=== PATIENT | female | born 1955 | race Caucasian/White ===

== ENCOUNTER 2019-11-08 07:13 | Inpatient (IN) ==
--- NOTE | 2019-10-23 15:33 | PAT Medication Instructions ---
Medication Instructions Date of Service October 23, 2019 Home Medications lisinopril 30 mg tablet 30 mg PO QAM acetaminophen [Tylenol Extra Strength] 1,000 mg PO Q6H PRN aspirin 81 mg PO QPM calcium carbonate [Calcium 600] 600 mg PO QAM cholecalciferol (vitamin D3) 3,000 units PO QPM coenzyme Q10 [CoQ-10] 200 mg PO QAM ibuprofen 600 mg PO Q6H PRN magnesium 250 mg PO QAM mecobalamin (vitamin B12) 5,000 mcg PO QAM omega 3,6,9 combination no.7 1 mg PO QAM red yeast rice 1,200 mg PO QPM sour jones extract [Tart Jones Extract] 3,000 mg PO QAM turmeric root extract 500 mg PO QAM ASK your surgeon for instructions ibuprofen 600 mg PO Q6H PRN ASK your prescriber and surgeon aspirin 81 mg PO QPM STOP taking 2 weeks before surgery (or as soon as possible if surgery is within 2 weeks) coenzyme Q10 [CoQ-10] 200 mg PO QAM omega 3,6,9 combination no.7 1 mg PO QAM red yeast rice 1,200 mg PO QPM sour jones extract [Tart Jones Extract] 3,000 mg PO QAM turmeric root extract 500 mg PO QAM DO NOT take the morning of surgery lisinopril 30 mg tablet 30 mg PO QAM calcium carbonate [Calcium 600] 600 mg PO QAM magnesium 250 mg PO QAM mecobalamin (vitamin B12) 5,000 mcg PO QAM Take morning of surgery With a small sip of water, OTHERWISE NOTHING TO EAT OR DRINK AFTER MIDNIGHT: acetaminophen [Tylenol Extra Strength] 1,000 mg PO Q6H PRN (okay to take up to 4 hours prior to surgery if needed) Take evening before surgery acetaminophen [Tylenol Extra Strength] 1,000 mg PO Q6H PRN (if needed) cholecalciferol (vitamin D3) 3,000 units PO QPM Other Notes If you have any questions please call us at [phone] or [phone] or [phone] or [phone]
--- NOTE | 2019-10-24 10:23 | Anesthesiology Consultation ---
Date of Service October 24, 2019 Assessment & Plan (1) Encounter for pre-operative examination: Patient evaluated by cardiology 03/13/19 for dyspnea and thoracic aortic aneurysm. Stress echo completed 03/27/19, and showed possible small area of apical ischemia. Reviewed by charging car operator, and no further recommendations were given to the patient. Patient subsequently moved, and charging car operator no longer with that practice. Patient seen by PCP for clearance on 10/30. She had no cardiopulmonary complaints at that visit, and expressed good functional status at PAT interview (no CP or SOB with 1 FOS). PCP reviewed EKG and stress test at clearance; patient considered "average risk" for surgery. PCP Clearance 10/30/19 = "Patient has 12 lead EKG that shows nonspecific ST T wave changes when compared to previous EKG is unchanged. She had a stress echo that was completed February 2019 which showed small area of apical ischemia but other than that no changes in ejection fraction was 76 percent. Patient would be considered average risk for this surgery. Blood pressure appears to be well controlled. I would recommend that she take her lisinopril the morning of her surgery." * *Pt phoned and instructed NOT to take Lisinopril AM DOS. Chart Review Chart Review: Acceptable Risk for Surgery and Patient seen in Pre Admission Testing Teaching & Discussion Instructed NPO after midnight before surgery, except medications with 15 cc of water. Medication instructions provided according to the PAT guidelines. History Surgery Operation Date: 11/08/19 10:25 Proposed Procedures p L3-L4 Decompression, Possible L3-L4 Fusion with Spinal Cord Monitoring - Duy Rahman DO Operation Date: 11/08/19 11:45 Proposed Procedures p L3-L4 Decompression, L3-L4 Possible Fusion, Spinal Cord Monitoring - Duy Rahman DO Height/Weight Height: 5 ft 10 in Weight: 111.2 kg Allergies Allergy/AdvReac Type Severity Reaction Status Date / Time codeine Allergy Chest Pain Verified 10/17/19 12:28 Medications Home Medications Medication Instructions Recorded Confirmed Last Taken lisinopril 30 mg tablet 30 mg PO QAM 09/05/19 10/17/19 Unknown acetaminophen [Tylenol Extra 1,000 mg PO Q6H PRN 10/17/19 10/17/19 Unknown Strength] aspirin 81 mg PO QPM 10/17/19 10/17/19 Unknown calcium carbonate [Calcium 600] 600 mg PO QAM 10/17/19 10/17/19 Unknown cholecalciferol (vitamin D3) 3,000 units PO QPM 10/17/19 10/17/19 Unknown coenzyme Q10 [CoQ-10] 200 mg PO QAM 10/17/19 10/17/19 Unknown ibuprofen 600 mg PO Q6H PRN 10/17/19 10/17/19 Unknown magnesium 250 mg PO QAM 10/17/19 10/17/19 Unknown mecobalamin (vitamin B12) 5,000 mcg PO QAM 10/17/19 10/17/19 Unknown omega 3,6,9 combination no.7 1 mg PO QAM 10/17/19 10/17/19 Unknown red yeast rice 1,200 mg PO QPM 10/17/19 10/17/19 Unknown sour jeong extract [Tart Jeong 3,000 mg PO QAM 10/17/19 10/17/19 Unknown Extract] turmeric root extract 500 mg PO QAM 10/17/19 10/17/19 Unknown nitrofurantoin 100 mg PO BID #14 cap 10/30/19 Unknown monohydrate/macrocrystals 100 mg capsule Past Medical History Medical History Arthritis Back problem RLE radiculopathy Hyperlipidemia Hypertension Lung nodule under surveillance- stable Obesity Thoracic aortic aneurysm 4.2cm at aortic arch, 3.8 ascending. Exercise / Class Metabolic Activity II 4-5 Yardwork/Stairs/Walk up hill (Denies CP or SOB with 1 FOS) Past Family History Family History Father Heart disease Myocardial infarction Hypertension Brother Pancreatic cancer Cancer Daughter Family history of diabetes mellitus Past Surgical History Surgical History H/O section History of colonoscopy Hx of appendectomy Hx of cholecystectomy Past Anesthesia History No Hx of Anesthesia Complications and No Family Hx of Anesthesia Complications History of PONV No Hx of PONV and No Hx of Motion Sickness Social History Smoking Status: Former smoker tobacco type: cigarettes Do You Dip or Chew Tobacco: No Smoking End Date: QUIT 16 YRS AGO Hx Alcohol Use: Yes Alcohol type: wine alcohol intake frequency: a few times a week Hx Substance Use: No Review of Systems Pt denies any recent chest pain, shortness of breath, palpitations, cough, fever or URI. Physical Exam Vital Signs BP: 139/79 P: 69bpm SPO2: 97% RA T: 98.4 F R: 16 ENMT Mouth: + dental restorations (one crown bottom right); no chipped teeth and no loose teeth Thyromental Distance: > or= 3.5 Finger Breadths (3.5) Mallampati Class: II Neck normal visual inspection; neck extension not limited Respiratory normal respiratory effort Auscultation: lungs clear to auscultation bilaterally Cardiovascular Rate/Rhythm: regular rate and regular rhythm Heart Sounds: + murmur (II/ systolic RSB) Vessels: no carotid bruit Extremities: no edema Testing Laboratory Results 10/24/19 10:32 10/24/19 10:32 PT 10.6 Seconds (9.0-12.0) 10/24/19 10:32 INR 1.0 (0.9-1.1) 10/24/19 10:32 APTT 28.4 Seconds (21.0-31.0) 10/24/19 10:32 Urine Color Yellow 10/24/19 Unknown Urine Appearance Clear (Clear) 10/24/19 Unknown Urine pH 6.5 (4.5-7.5) 10/24/19 Unknown Ur Specific [place] 1.012 (1.000-1.030) 10/24/19 Unknown Urine Protein Negative (Negative) 10/24/19 Unknown Urine Glucose (UA) Negative (Negative) 10/24/19 Unknown Urine Ketones Negative (Negative) 10/24/19 Unknown Urine Nitrite Negative (Negative) 10/24/19 Unknown Ur Leukocyte Esterase 2+ (Negative) H 10/24/19 Unknown Urine WBC (Auto) 1-5 /hpf (0-5) 10/24/19 Unknown Urine RBC (Auto) 0-4 /hpf (0-4) 10/24/19 Unknown U Hyaline Cast (Auto) 0 /lpf (0-5) 10/24/19 Unknown U Epithel Cells (Auto) 10-20 /lpf (0-5) H 10/24/19 Unknown Urine Bacteria (Auto) Negative (Negative) 10/24/19 Unknown Blood Type A Positive 10/24/19 10:32 Antibody Screen NEGATIVE 10/24/19 10:32 11/27/19 Unknown Urine Culture - Final Urine,Clean Catch More than three types of organisms present, all high counts. Repeat collection recommended. No further identifications or sensitivities to follow. Electrocardiogram Date: 10/24/19 Findings: + NSR @ (62bpm) iRBBB. Nonspecific ST and TWA. Chest X-Ray Date: 10/24/19 Findings: + NAD Echocardiogram "Echo showed aortic arch to be 4.2 cm ascending aorta 3.8 cm. There was trace to mild mitral regurgitation likely from the thoracic aortic dilatation trace tricuspid regurgitation and normal left ventricular ejection fraction is 60 65%. " Echo referenced in PCP note 10/30, no date provided, no TTEs on record at [facility]. Stress Test Date: 03/27/19 Type: nuclear Resting EF: 73% Possible small area of apical ischemia. No infarct. Normal LV systolic function.
--- NOTE | 2019-10-24 11:10 | XRay Report ---
TWO VIEW CHEST CLINICAL HISTORY: Preoperative examination. FINDINGS: PA and lateral chest radiographs are obtained. No prior studies are available for compariso n at the time of dictation. The cardiomediastinal silhouette is unremarkable. The lungs and pleura l spaces are clear. There is no pneumothorax. The bony thorax appears intact. Surgical clips are note d in the upper abdomen. IMPRESSION: No active disease in the chest. Electronically signed by: Miguel Acevedo M.D. 10/24/2019 11:09 AM
[2019-10-24 11:20] LABS: Basophils # (auto) 0.02 K/uL (0-0.2); Basophils % (auto) 0.4 %; Eosinophils # (auto) 0.12 K/uL (0-0.5); Eosinophils % (auto) 2.1 %; Hemoglobin 12.4 g/dL (12.0-16.0); Immature Granulocytes # (auto) 0.01 K/uL (0.00-0.02); Immature Granulocytes % (auto) 0.2 %; Lymphocytes # (auto) 1.78 K/uL (1.2-3.4); Lymphocytes % (auto) 31.6 %; Mean Corpuscular Hemoglobin 32.8 pg (25-34); Mean Corpuscular Hgb Conc 33.5 g/dL (32-36); Mean Corpuscular Volume 97.9 fL (80-100); Mean Platelet Volume 10.2 fL (7.4-10.4); Monocytes # (auto) 0.39 K/uL (0.11-0.59); Monocytes % (auto) 6.9 %; Neutrophils # (auto) 3.31 K/uL (1.4-6.5); Neutrophils % (auto) 58.8 %; Platelet Count 291 K/uL (130-400); RDW Coefficient of Variation 12.8 % (11.5-14.5); RDW Standard Deviation 45.6 fL (36.4-46.3); Red Blood Count 3.78 M/uL (4.2-5.4); White Blood Count 5.63 K/uL (4.8-10.8)
[2019-10-24 11:28] LABS: BUN Creatinine Ratio 19.5 (10-20); Calcium 9.5 mg/dl (8.5-10.1); Creatinine Clr Calc Pharmacy 98.6 ml/min; Est GFR (African American) 94.6; Est GFR (Non-African American) 81.6; Potassium 3.9 mmol/L (3.5-5.1)
[2019-10-24 11:43] LABS: Partial Thromboplastin Time 28.4 Seconds (21.0-31.0); Prothrombin Time 10.6 Seconds (9.0-12.0)
[2019-10-24 12:24] LABS: Appearance Urine Clear (Clear); Bacteria Urine Automated Negative (Negative); Bilirubin Urine Negative (Negative); Blood Urine Negative (Negative); Cast Urine Automated 0 /lpf (0-5); Color Urine Yellow; Glucose Urine UA Negative (Negative); Ketones Urine Negative (Negative); Leukocyte Esterase Urine 2+ (Negative); Nitrite Urine Negative (Negative); Protein Urine Negative (Negative); RBC Urine Automated 0-4 /hpf (0-4); Specific Gravity Urine 1.012 (1.000-1.030); Urobilinogen Urine Negative (Negative); pH Urine 6.5 (4.5-7.5)
[~2019-11-08 07:13] MED LIST: ACETAMINOPHEN 500 MG TAB PO SCH; CEFAZOLIN 2000MG 2,000 MG/15 ML SYR IV SCH; CeleBREX 200 MG CAP PO SCH; GABAPENTIN 600 MG DOSE PO SCH; HYDROmorphone INJ 2 MG/ML SYR/VIAL ONE; LR 15ML/HR IV SCH; MIDAZOLAM HCL 1 MG/ML 2ML VIAL ONE; fentaNYL citrate 100 MCG/2 ML VIAL ONE
--- NOTE | 2019-11-08 09:01 | History & Physical Bridge Note ---
Date of Service November 08, 2019 History & Physical Bridge Note I have examined the patient, reviewed the History & Physical and in the interval since the performance of the History & Physical I have noted the following changes of clinical significance: no changes noted
--- NOTE | 2019-11-08 09:02 | History & Physical Report ---
Date of Service November 08, 2019 Assessment & Plan (1) Spinal stenosis of lumbar region with radiculopathy: Decompression L3-4, possible fusion L3-4 Present on Admission?: Yes History of Present Illness Chief Complaint: Back and leg pain Primary Care Provider: James Rodriguez MD This is a 64-year-old female who presents with chronic persistent back and leg pain. After failing extensive course of nonoperative care is here for surgical invention. Allergies Allergy/AdvReac Type Severity Reaction Status Date / Time codeine Allergy Chest Pain Verified 11/08/19 08:06 Home Medications Home Medications Medication Instructions Recorded Confirmed Type lisinopril 30 mg tablet 30 mg PO QAM 09/05/19 11/08/19 History acetaminophen [Tylenol Extra 1,000 mg PO Q6H PRN 10/17/19 11/08/19 History Strength] aspirin 81 mg PO QPM 10/17/19 11/08/19 History calcium carbonate [Calcium 600] 600 mg PO QAM 10/17/19 11/08/19 History cholecalciferol (vitamin D3) 3,000 units PO QPM 10/17/19 11/08/19 History coenzyme Q10 [CoQ-10] 200 mg PO QAM 10/17/19 11/08/19 History ibuprofen 600 mg PO Q6H PRN 10/17/19 11/08/19 History magnesium 250 mg PO QAM 10/17/19 11/08/19 History mecobalamin (vitamin B12) 5,000 mcg PO QAM 10/17/19 11/08/19 History omega 3,6,9 combination no.7 1 mg PO QAM 10/17/19 11/08/19 History red yeast rice 1,200 mg PO QPM 10/17/19 11/08/19 History sour jones extract [Tart Jones 3,000 mg PO QAM 10/17/19 11/08/19 History Extract] turmeric root extract 500 mg PO QAM 10/17/19 11/08/19 History Past Med/Surg History Medical History Arthritis Back problem RLE radiculopathy Hyperlipidemia Hypertension Lung nodule under surveillance- stable Obesity Thoracic aortic aneurysm 4.2cm at aortic arch, 3.8 ascending. 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 Other Information That Helps Us Care for You: No Feels Safe at Home: Yes Safety Concerns: Feels Safe At This Time Smoking Status: Former smoker Tobacco Type: cigarettes ; Age Started Using Tobacco: 20 ; Age Quit Using Tobacco: 48 ; packs per day: 1 ; Do You Dip or Chew Tobacco: No ; Smoking End Date: QUIT 16 YRS AGO ; Second Hand Exposure: Yes (FATHER SMOKED) ; Hx Alcohol Use: Yes Alcohol type: wine Alcohol Intake Frequency: Weekly Alcohol Intake Frequency Comment: 5 drinks per week Hx Substance Use: No Childhood Exposure to Second-Hand Smoke: Yes caffeine: Yes during the past year weight has: remained stable Dental Care, Regularly: Yes Physical Activity Frequency: Other Seatbelt Use: always Sunscreen Use: Yes Physical Exam Physical Exam: Patient is alert and oriented neurologically intact. Results & Data Vital Signs (Past 12 Hours) Vital Signs Temp Pulse Resp BP Pulse Ox 11/08/19 08:13 37.2 C 69 16 155/91 H 98
[2019-11-08] MEDS ORDERED: BUPIVACAINE/EPINEPHRINE 0.5% MPF 1:200,000 10 ML VIAL ONE (09:12)
[2019-11-08] MEDS ORDERED: BACITRACIN INJ 50,000 UNIT VIAL ONE (09:12)
[2019-11-08] MEDS ORDERED: ePHEDrine sulfate 50 MG/ML AMP IV PRN (09:36)
[2019-11-08] MEDS ORDERED: ATROPINE SULFATE 0.1 MG/ML 10ML SYR IV PRN (09:36)
[2019-11-08] MEDS ORDERED: ONDANSETRON INJ 2 MG/ML 2 ML VIAL IV PRN ×2 (09:36→12:44)
[2019-11-08] MEDS ORDERED: METOCLOPRAMIDE HCL INJ 5 MG/ML 2 ML VIAL IV PRN ×2 (09:36→12:44)
[2019-11-08] MEDS ORDERED: HYDROmorphone INJ 2 MG/ML SYR/VIAL IV PRN (09:36)
[2019-11-08] MEDS ORDERED: PROMETHAZINE HCL 12.5 MG in SODIUM CHLORIDE 0.9% 50 ML IV PRN ×2 (09:36→12:44)
[2019-11-08] MEDS ORDERED: fentaNYL citrate 100 MCG/2 ML VIAL ONE ×4 (09:58→11:06)
[2019-11-08] MEDS ORDERED: LARYING-O-JET KIT (LTA) ONE (10:05)
[2019-11-08] MEDS ORDERED: ONDANSETRON INJ 2 MG/ML 2 ML VIAL ONE (10:05)
[2019-11-08] MEDS ORDERED: DEXAMETHASONE SOD INJ 4 MG/ML VIAL ONE (10:05)
[2019-11-08] MEDS ORDERED: LIDOCAINE HCL 2% 2 ML VIAL/AMP(20MG/ML) INFIL ONE (10:05)
[2019-11-08] MEDS ORDERED: NEOSTIGMINE METHYLSULFATE 1 MG/ML 10ML VIAL ONE (10:05)
[2019-11-08] MEDS ORDERED: ROCURONIUM BROMIDE 10 MG/ML 5 ML VIAL ONE (10:05)
[2019-11-08] MEDS ORDERED: PROPOFOL IV EMULSION 10 MG/ML 20 ML VIAL IV ONE (10:05)
[2019-11-08] MEDS ORDERED: GLYCOPYRROLATE 0.2 MG/ML VIAL ONE (10:05)
[2019-11-08] MEDS ORDERED: FLOSEAL HEMOSTATIC MATRIX 10ML TOP ONE (10:07)
[2019-11-08] MEDS ORDERED: HYDROmorphone INJ 2 MG/ML SYR/VIAL ONE (10:32)
[2019-11-08] MEDS ORDERED: KETOROLAC 30 MG/ML VIAL ONE (11:09)
--- NOTE | 2019-11-08 11:09 | Operative Report ---
Post Operative Report Pre & Post Diagnosis Operation Date: 11/08/19 09:05 Pre-Op Diagnosis: Lumbar spinal stenosis with neurogenic claudication Herniated was pulposis L3-4 Post-Op Diagnosis: Same Operation Date: 11/08/19 10:25 <No data on this case meets the specified criteria> I identified the patient and participated in the time-out.: Yes Procedure Operation Date: 11/08/19 09:05 Actual Procedures #1 lumbar decompression with bilateral medial facetectomies foraminotomies L2-3 L3-4. #2 posterior spinal fusion L3-4. #3 placed posterior instrumentation L3- 4. #4 interbody fusion L3-4 per #5 placement of peek cage 12 x 26 mm at L3-4. #6 placement of locally harvested morselized autograft in the posterior lateral gutters. #7 placement infuse collagen sponge bone mass graft in the posterior lateral gutters and ostial amp and interbody space. Surgeon Duy Rahman, DO Project Product Manager Amanda Burgos Estimated Blood Loss 75 Findings See Below The patient is 5 foot 10 inches tall weighing over 109 kg with a BMI in excess of 34. The patient's body habitus did add significant technical difficulty throughout the procedure adding at least 40% increase in operative time. Specimens None Indications This is a 64-year-old female who presents above-mentioned diagnosis after fa iling extensive course of nonoperative care is here for surgical intervention. Description of Procedure Patient was met with identified informed consent obtained. Patient was then taken to the operative suite underwent intubation placed in a prone position on the Alverto table on top of the Jose frame. All bony prominences well-padded eyes inspected to ensure no external pressure was prompt at this point the lumbar spine was prepped and draped in a sterile fashion. Sharp dissection with the assistance of Bovie cautery was then performed down to and exposing the lamina and trans-processes of L3 and L4 bilaterally. From caudal cephalad fashion complete laminectomy of L3 partial laminectomy of L2 was performed including bilateral medial facetectomies and foraminotomies addressing all stenosis. Disc herniation L3-4 on the right was also identified and removed. Pedicle screws were then placed in L3 and L4 bilaterally with assistance of fluoroscopy the process deanna placed. By way of a transforaminal portion right complete discectomy was performed endplates curetted to subcortical bleeding bone and a 12 x 26 mm peek cage filled with osteo-bone graft tapped in position. Rods were then locked in final position bilaterally. Transverse processes of L3 and L4 were burred to subcortical bleeding bone. Infuse collagen sponge master graft local autograft placed in the posterior lateral gutters. 15 round ABI drain inserted. The incision was then closed with 1 Vicryl in the fascia 2-0 Vicryl subcutaneously and 4 Monocryl for final skin closure. Steri-Strip sterile dressings placed. Patient will continue to PACU stable condition. Please note Amanda Burgos present present throughout the entire procedure involved the patient positioning complex portions of the surgery and final skin closure. Lastly spinal cord monitoring was utilized that the procedure no changes noted. I attest to the content of the Intraoperative Record and any orders documented therein. Any exceptions are noted below.
[2019-11-08] MEDS ORDERED: ESMOLOL HCL INJ 10 MG/ML 10ML VIAL IV ONE (11:22)
[2019-11-08] MEDS: fentaNYL citrate 100 MCG/2 ML VIAL IV PRN ×2 (11:35→11:40)
--- NOTE | 2019-11-08 11:44 | Fluoroscopy Report ---
FL lumbar spine 2-3V CLINICAL HISTORY: L3-4 DECOMPRESSION/FUSION/INTERBODY COMPARISON STUDY: None FLUOROSCOPY TIME: 15 seconds. NUMBER OF FLUOROSCOPIC IMAGES: 2 FINDINGS: There are postsurgical changes of a lumbar decompression with discectomy and interbody fusi on. There is posterior pedicle screw fixation. The exact level cannot be determined with certainty du e to the small field of view. IMPRESSION: Postsurgical changes of a lumbar discectomy and interbody fusion and posterior pedicle s crew fixation Electronically signed by: Param Juarez M.D. 11/08/2019 11:42 AM
[2019-11-08] MEDS ORDERED: MAGNESIUM HYDROXIDE SUSP 30 ML UDC PO PRN (12:44)
[2019-11-08] MEDS ORDERED: DO NOT ADMINISTER FLU VACCINE PRN (12:44)
[2019-11-08] MEDS ORDERED: HYDROmorphone INJ 0.5 MG/0.5 ML SYR IV PRN (12:44)
[2019-11-08] MEDS ORDERED: ACETAMINOPHEN 1,000 MG/100 ML VIAL IV PRN (12:44)
[2019-11-08] MEDS ORDERED: NALOXONE HCL 0.4 MG/1 ML VIAL/CARP IV PRN (12:44)
[2019-11-08] MEDS ORDERED: SOD PHOSPHATE/SOD BIPHOSPHATE ENEMA 132 ML BTL PR PRN (12:44)
[2019-11-08] MEDS ORDERED: bisacodyL 10 MG SUPP PR PRN (12:44)
[2019-11-08] MEDS ORDERED: DO NOT ADMINISTER PNEUMOCOCCAL VACCINE PRN (12:44)
[2019-11-08] MEDS ORDERED: LORazepam 0.5 MG/1 ML VIAL IV PRN (12:44)
[2019-11-08] MEDS ORDERED: FAMOTIDINE 20 MG TAB PO PRN (12:44)
[2019-11-08] MEDS ORDERED: ALUMINUM/MAGNESIUM SUSP 30 ML UDC PO PRN (12:44)
[2019-11-08] MEDS: OXYCODONE HCL IR 5 MG TAB (IMMEDIATE RELEASE) PO PRN ×3 (13:42→22:13)
[2019-11-08] MEDS: SODIUM CHLORIDE 0.9% 1000ML 1,000 ML IV SCH ×2 (13:45→20:19)
[2019-11-08] MEDS: KETOROLAC TROMETHAMINE 15 MG/ML VIAL IV SCH ×2 (13:45→20:14)
--- NOTE | 2019-11-08 14:27 | Anesthesiology Progress Note ---
Date of Service November 08, 2019 Anesthesia Post Procedure Vital Signs Vital Signs: Temp Pulse Pulse Resp BP Pulse Ox 11/08/19 13:38 64 14 118/79 98 11/08/19 12:35 36.7 C 61 14 116/77 97 11/08/19 12:00 36.6 C 61 14 129/70 95 11/08/19 11:50 66 17 120/66 98 11/08/19 11:40 48 L 12 122/67 98 11/08/19 11:30 61 12 129/76 100 11/08/19 11:21 36.9 C 66 12 124/72 100 11/08/19 08:13 37.2 C 69 16 155/91 H 98 Pain Intensity Posterior Back: Pain Intensity: 5 Transfer of Care Handoff Completed per policy Notes Mental Status: alert / awake / arousable and participated in evaluation Patient Amnestic to Procedure: Yes Nausea / Vomiting: adequately controlled Pain: adequately controlled Airway Patency, RR, SpO2: stable & adequate BP & HR: stable & adequate Hydration State: stable & adequate Anesthetic Complications: no major complications apparent
[2019-11-08] MEDS: CEFAZOLIN 2000MG 2,000 MG/15 ML SYR IV SCH (17:51)
[2019-11-08] MEDS: DOCUSATE SODIUM/SENNA 50/8.6MG TAB PO SCH (20:13)
[2019-11-08] MEDS: ASPIRIN 81 MG ECTAB PO SCH (20:13)
[2019-11-08] MEDS: CHOLECALCIFEROL 1,000 UNITS TAB PO SCH (20:14)
[2019-11-08] MEDS ORDERED: RED YEAST RICE 1200 MG PO SCH (21:00)
[2019-11-09] MEDS: KETOROLAC TROMETHAMINE 15 MG/ML VIAL IV SCH ×2 (01:40→07:57)
[2019-11-09] MEDS: CEFAZOLIN 2000MG 2,000 MG/15 ML SYR IV SCH (01:40)
[2019-11-09] MEDS: SODIUM CHLORIDE 0.9% 1000ML 1,000 ML IV SCH (02:59)
[2019-11-09 05:35] LABS: Hemoglobin 9.9 g/dL (12.0-16.0); Immature Granulocytes # (auto) 0.01 K/uL (0.00-0.02); Immature Granulocytes % (auto) 0.1 %; Lymphocytes % (auto) 10.3 %; Mean Corpuscular Hemoglobin 32.2 pg (25-34); Mean Corpuscular Volume 97.7 fL (80-100); Mean Platelet Volume 9.8 fL (7.4-10.4); Monocytes # (auto) 0.61 K/uL (0.11-0.59); Neutrophils # (auto) 7.24 K/uL (1.4-6.5); Neutrophils % (auto) 82.6 %; Platelet Count 261 K/uL (130-400); RDW Coefficient of Variation 12.8 % (11.5-14.5); RDW Standard Deviation 45.4 fL (36.4-46.3); Red Blood Count 3.07 M/uL (4.2-5.4); White Blood Count 8.76 K/uL (4.8-10.8)
[2019-11-09] MEDS: OXYCODONE HCL IR 5 MG TAB (IMMEDIATE RELEASE) PO PRN ×4 (05:38→19:24)
[2019-11-09] MEDS: POLYETHYLENE (MIRALAX) 17 GM PACK PO SCH ×4 (05:39→23:31)
[2019-11-09 06:07] LABS: BUN Creatinine Ratio 19.2 (10-20); Calcium 8.3 mg/dl (8.5-10.1); Creatinine Clr Calc Pharmacy 88.8 ml/min; Est GFR (African American) 82.7; Est GFR (Non-African American) 71.4; Potassium 4.4 mmol/L (3.5-5.1)
--- NOTE | 2019-11-09 07:54 | Anesthesiology Progress Note ---
Date of Service November 09, 2019 Anesthesia Post Procedure Vital Signs Vital Signs: Temp Pulse Pulse Resp BP Pulse Ox 11/09/19 07:33 36.6 C 58 L 16 130/87 97 11/09/19 03:05 36.7 C 64 16 116/71 96 11/08/19 23:59 36.6 C 72 16 113/69 96 11/08/19 19:54 36.6 C 67 16 129/77 94 11/08/19 15:19 36.6 C 72 16 120/74 96 11/08/19 14:00 70 16 136/79 97 11/08/19 13:38 65 16 125/74 97 11/08/19 13:05 64 16 118/77 98 11/08/19 12:35 36.7 C 61 14 116/77 97 11/08/19 12:00 36.6 C 61 14 129/70 95 11/08/19 11:50 66 17 120/66 98 11/08/19 11:40 48 L 12 122/67 98 11/08/19 11:30 61 12 129/76 100 11/08/19 11:21 36.9 C 66 12 124/72 100 11/08/19 08:13 37.2 C 69 16 155/91 H 98 Pain Intensity Posterior Back: Pain Intensity: 5 Notes Mental Status: alert / awake / arousable and participated in evaluation Patient Amnestic to Procedure: Yes Nausea / Vomiting: adequately controlled Pain: adequately controlled Airway Patency, RR, SpO2: stable & adequate BP & HR: stable & adequate Hydration State: stable & adequate Anesthetic Complications: no major complications apparent and Pt Satisfied with anesthetic care
[2019-11-09] MEDS: CYANOCOBALAMIN (VITAMIN B-12) 2,500 MCG TAB.SUBL SL SCH (08:03)
[2019-11-09] MEDS: CALCIUM CARBONATE 1250MG TAB PO SCH (08:04)
[2019-11-09] MEDS: lisinopriL 10 MG TAB PO SCH (08:04)
[2019-11-09] MEDS: MAGNESIUM OXIDE 400 MG TAB PO SCH (08:04)
[2019-11-09] MEDS ORDERED: NON-FORMULARY MEDICATION (Coenzyme Q10 [Coq-10] 200 MG) PO SCH (09:00)
[2019-11-09] MEDS ORDERED: NON-FORMULARY MEDICATION (Turmeric Root Extract 500 MG) PO SCH (09:00)
[2019-11-09] MEDS ORDERED: TART CHERRY EXTRACT PO SCH (09:00)
--- NOTE | 2019-11-09 10:11 | Orthopedic Progress Note ---
Date of Service November 09, 2019 Assessment & Plan (1) Spinal stenosis of lumbar region with radiculopathy: This time we will continue physical therapy monitor ABI output anticipate discharge home this weekend. Present on Admission?: Yes Subjective Patient's back pain is controlled leg pain markedly improved. Physical Exam Physical Exam: Patient is in the chair at the bedside is good strength testing appears comfortable. Results & Data Vital Signs (Past 12 Hours) Vital Signs Temp Pulse Resp BP Pulse Ox 11/09/19 07:33 36.6 C 58 L 16 130/87 97 11/09/19 03:05 36.7 C 64 16 116/71 96 11/08/19 23:59 36.6 C 72 16 113/69 96
[2019-11-09] MEDS: MICONAZOLE NITRATE POWDER 43 GM EXT SCH ×2 (11:57→20:44)
[2019-11-09] MEDS: ASPIRIN 81 MG ECTAB PO SCH (20:43)
[2019-11-09] MEDS: DOCUSATE SODIUM/SENNA 50/8.6MG TAB PO SCH (20:43)
[2019-11-09] MEDS: CHOLECALCIFEROL 1,000 UNITS TAB PO SCH (20:44)
[2019-11-09] MEDS: TRAMADOL HCL 50 MG TABLET PO PRN (22:42)
[2019-11-10] MEDS: OXYCODONE HCL IR 5 MG TAB (IMMEDIATE RELEASE) PO PRN ×5 (02:00→21:01)
[2019-11-10] MEDS: HYDROmorphone INJ 1 MG/ML SYRINGE IV PRN ×2 (04:13→08:00)
[2019-11-10] MEDS: POLYETHYLENE (MIRALAX) 17 GM PACK PO SCH ×4 (05:50→23:26)
[2019-11-10] MEDS: CYANOCOBALAMIN (VITAMIN B-12) 2,500 MCG TAB.SUBL SL SCH (07:00)
[2019-11-10] MEDS: lisinopriL 10 MG TAB PO SCH (07:01)
[2019-11-10] MEDS: LORazepam 0.5 MG TAB PO PRN (07:31)
[2019-11-10] MEDS: MAGNESIUM OXIDE 400 MG TAB PO SCH (08:04)
[2019-11-10] MEDS: CALCIUM CARBONATE 1250MG TAB PO SCH (08:05)
[2019-11-10] MEDS: TRAMADOL HCL 50 MG TABLET PO PRN ×2 (10:10→16:10)
[2019-11-10] MEDS: ACETAMINOPHEN 500 MG TAB PO PRN (10:10)
--- NOTE | 2019-11-10 10:37 | Orthopedic Progress Note ---
Date of Service November 10, 2019 Assessment & Plan (1) Spinal stenosis of lumbar region with radiculopathy: This time we will continue physical therapy as tolerated. Monitor ABI output. Hopefully discharge home tomorrow. Present on Admission?: Yes Subjective Patient complaining mostly of back pain today. Again leg symptoms markedly improved. Physical Exam Physical Exam: On exam she has good strength testing. Results & Data Vital Signs (Past 12 Hours) Vital Signs Temp Pulse Resp BP Pulse Ox 11/10/19 06:09 36.7 C 69 16 142/83 H 96 11/09/19 23:50 37.0 C 69 16 115/72 97
[2019-11-10] MEDS ORDERED: DEXAMETHASONE SOD PHOSPHATE 8 MG in SYRINGE 0 ML IV STA (10:44)
[2019-11-10] MEDS: MICONAZOLE NITRATE POWDER 43 GM EXT SCH ×2 (10:45→19:41)
[2019-11-10] MEDS: CHOLECALCIFEROL 1,000 UNITS TAB PO SCH (19:40)
[2019-11-10] MEDS: DOCUSATE SODIUM/SENNA 50/8.6MG TAB PO SCH (19:40)
[2019-11-10] MEDS: ASPIRIN 81 MG ECTAB PO SCH (19:40)
[2019-11-11] MEDS: OXYCODONE HCL IR 5 MG TAB (IMMEDIATE RELEASE) PO PRN ×4 (03:50→18:31)
[2019-11-11] MEDS: POLYETHYLENE (MIRALAX) 17 GM PACK PO SCH ×3 (05:48→19:13)
--- NOTE | 2019-11-11 08:26 | Orthopedic Progress Note ---
Date of Service November 11, 2019 Assessment & Plan (1) Lumbar disc disease: Patient is doing well postop day #3 with some distention and mild abdominal discomfort. We will have her continue to ambulate. We will continue with GI DVT prophylaxis. We will hold off on her discharge today and will see how she does throughout the day and likely discharge her to home tomorrow. Subjective Patient was seen bedside postoperative day #3. She had difficulties yesterday. Walking was painful in terms of her back itself. She also feels somewhat bloated and has not yet had a bowel movement. The pain is slightly better this morning. She is hesitant to go home as she has not had a bowel movement yet and still has significant pain. She denies any other numbness, tingling, or paresthesias. Physical Exam Physical Exam: On exam she is alert and oriented. Her calf is supple and nontender. She has some mild distention in the abdomen but has no significant tenderness with palpation. Her strength and sensation are both intact gait was not observed. Results & Data Vital Signs (Past 12 Hours) Vital Signs Temp Pulse Pulse Resp BP Pulse Ox 11/11/19 06:59 36.6 C 62 18 129/84 97 11/10/19 23:27 36.7 C 66 14 148/90 H 94
[2019-11-11] MEDS: lisinopriL 10 MG TAB PO SCH (09:41)
[2019-11-11] MEDS: CALCIUM CARBONATE 1250MG TAB PO SCH (09:41)
[2019-11-11] MEDS: MAGNESIUM OXIDE 400 MG TAB PO SCH (09:41)
[2019-11-11] MEDS: MICONAZOLE NITRATE POWDER 43 GM EXT SCH ×2 (09:43→20:30)
[2019-11-11] MEDS: CYANOCOBALAMIN (VITAMIN B-12) 2,500 MCG TAB.SUBL SL SCH (10:42)
[2019-11-11] MEDS: TRAMADOL HCL 50 MG TABLET PO PRN ×2 (16:11→21:15)
[2019-11-11] MEDS: ONDANSETRON 4 MG OD TAB PO PRN (17:50)
[2019-11-11] MEDS: ASPIRIN 81 MG ECTAB PO SCH (20:31)
[2019-11-11] MEDS: DOCUSATE SODIUM/SENNA 50/8.6MG TAB PO SCH (20:31)
[2019-11-11] MEDS: CHOLECALCIFEROL 1,000 UNITS TAB PO SCH (20:32)
[2019-11-11] MEDS: ACETAMINOPHEN 500 MG TAB PO PRN (22:22)
[2019-11-12] MEDS: OXYCODONE HCL IR 5 MG TAB (IMMEDIATE RELEASE) PO PRN ×3 (00:18→17:04)
[2019-11-12] MEDS: POLYETHYLENE (MIRALAX) 17 GM PACK PO SCH (00:19)
[2019-11-12] MEDS: ONDANSETRON 4 MG OD TAB PO PRN (00:45)
[2019-11-12] MEDS: ACETAMINOPHEN 500 MG TAB PO PRN (06:16)
[2019-11-12] MEDS: TRAMADOL HCL 50 MG TABLET PO PRN (07:16)
[2019-11-12] MEDS: LORazepam 0.5 MG TAB PO PRN ×2 (08:18→21:52)
[2019-11-12] MEDS: MAGNESIUM OXIDE 400 MG TAB PO SCH (08:41)
[2019-11-12] MEDS: MICONAZOLE NITRATE POWDER 43 GM EXT SCH ×2 (08:41→21:41)
[2019-11-12] MEDS: CALCIUM CARBONATE 1250MG TAB PO SCH (08:41)
[2019-11-12] MEDS: lisinopriL 10 MG TAB PO SCH (08:42)
[2019-11-12] MEDS: CYANOCOBALAMIN (VITAMIN B-12) 2,500 MCG TAB.SUBL SL SCH (08:42)
[2019-11-12] MEDS: HYDROmorphone INJ 1 MG/ML SYRINGE IV PRN (09:46)
[2019-11-12] MEDS ORDERED: ONDANSETRON INJ 2 MG/ML 2 ML VIAL ONE (12:16)
[2019-11-12] MEDS ORDERED: NEOSTIGMINE METHYLSULFATE 1 MG/ML 10ML VIAL ONE (12:16)
[2019-11-12] MEDS ORDERED: PROPOFOL IV EMULSION 10 MG/ML 20 ML VIAL IV ONE (12:16)
[2019-11-12] MEDS ORDERED: fentaNYL citrate 100 MCG/2 ML VIAL ONE (12:16)
[2019-11-12] MEDS ORDERED: DEXAMETHASONE SOD INJ 4 MG/ML VIAL ONE (12:16)
[2019-11-12] MEDS ORDERED: LIDOCAINE HCL 2% 2 ML VIAL/AMP(20MG/ML) INFIL ONE (12:16)
[2019-11-12] MEDS ORDERED: GLYCOPYRROLATE 0.2 MG/ML VIAL ONE (12:16)
[2019-11-12] MEDS ORDERED: MIDAZOLAM HCL 1 MG/ML 2ML VIAL ONE (12:17)
--- NOTE | 2019-11-12 13:01 | Orthopedic Progress Note ---
Date of Service November 12, 2019 Assessment & Plan (1) Postoperative hematoma: At this time the patient's drain was DC'd prematurely as it did fall out. Presentation is consistent with a postop hematoma no elected to undergo urgent I&D of the epidural space. Patient understands and agrees. Risk benefits pros cons alternatives outlined in detail. Present on Admission?: No Subjective Patient complaining of significant back and bilateral leg pain with activity. This is a marked change from her function yesterday. Physical Exam Physical Exam: Patient is in bed she has marked difficulty rolling over or laying flat without reproduction of pain. She is neurologically intact otherwise. Results & Data Vital Signs (Past 12 Hours) Vital Signs Temp Pulse Resp BP Pulse Ox 11/12/19 12:39 36.8 C 63 20 159/72 H 97 11/12/19 07:07 36.7 C 65 16 143/84 H 98
[2019-11-12] MEDS ORDERED: BACITRACIN INJ 50,000 UNIT VIAL ONE (13:06)
--- NOTE | 2019-11-12 13:09 | Anesthesiology Consultation ---
Date of Service November 12, 2019 Assessment & Plan Chart Review Chart Review: Acceptable Risk for Surgery Consults Requested none History Surgery Operation Date: 11/08/19 09:05 Proposed Procedures p L3-L4 Decompression, L3-L4 Possible Fusion, Spinal Cord Monitoring - Duy Rahman DO Operation Date: 11/08/19 10:25 Proposed Procedures p L3-L4 Decompression, Possible L3-L4 Fusion with Spinal Cord Monitoring - Duy Rahman DO Operation Date: 11/12/19 07:55 Proposed Procedures p Incision and Drainage Lumbar Spine - Duy Rahman DO Height/Weight Height: 5 ft 10 in Weight: 109.939 kg Allergies Allergy/AdvReac Type Severity Reaction Status Date / Time codeine Allergy Chest Pain Verified 11/08/19 08:06 Medications Home Medications Medication Instructions Recorded Confirmed Last Taken lisinopril 30 mg tablet 30 mg PO QAM 09/05/19 11/08/19 11/07/19 08:00 acetaminophen [Tylenol Extra 1,000 mg PO Q6H PRN 10/17/19 11/08/19 Unknown Strength] aspirin 81 mg PO QPM 10/17/19 11/08/19 10/25/19 08:00 calcium carbonate [Calcium 600] 600 mg PO QAM 10/17/19 11/08/19 10/25/19 08:00 cholecalciferol (vitamin D3) 3,000 units PO QPM 10/17/19 11/08/19 10/25/19 08:00 coenzyme Q10 [CoQ-10] 200 mg PO QAM 10/17/19 11/08/19 10/25/19 08:00 ibuprofen 600 mg PO Q6H PRN 10/17/19 11/08/19 10/22/19 12:00 magnesium 250 mg PO QAM 10/17/19 11/08/19 10/25/19 08:00 mecobalamin (vitamin B12) 5,000 mcg PO QAM 10/17/19 11/08/19 10/25/19 08:00 omega 3,6,9 combination no.7 1 mg PO QAM 10/17/19 11/08/19 10/25/19 08:00 red yeast rice 1,200 mg PO QPM 10/17/19 11/08/19 10/25/19 08:00 sour jeong extract [Tart Jeong 3,000 mg PO QAM 10/17/19 11/08/19 10/25/19 08:00 Extract] turmeric root extract 500 mg PO QAM 10/17/19 11/08/19 10/25/19 08:00 oxycodone 5 mg PO Q6H PRN #30 tab 11/09/19 Unknown tramadol 50 mg PO Q6H PRN #30 tab 11/09/19 Unknown Active Medications Generic Name Dose Route Start Last Admin Trade Name Freq PRN Reason Stop Dose Admin Acetaminophen 1,000 mg 11/08/19 12:44 11/12/19 06:16 Tylenol PO 12/08/19 12:43 1,000 mg Q8H PRN Administration MILD Pain Rating 1,2,3 Aspirin 81 mg 11/08/19 21:00 11/11/19 20:31 Ecotrin Ectab PO 12/08/19 20:59 81 mg QPM STACIA Administration Calcium Carbonate 1,250 mg 11/09/19 09:00 11/12/19 08:41 Os-Burak 500 PO 12/09/19 08:59 1,250 mg QAM STACIA Administration Cyanocobalamin 5,000 mcg 11/09/19 09:00 11/12/19 08:42 Vitamin B-12 SL 12/09/19 08:59 Not Given QAM STACIA Hydromorphone HCl 1 mg 11/08/19 12:44 11/12/19 09:46 Dilaudid IV 11/22/19 12:43 1 mg Q3H PRN Administration severe pain (scale 7-10) Lisinopril 30 mg 11/09/19 09:00 11/12/19 08:42 Zestril PO 12/09/19 08:59 30 mg QAM STACIA Administration Lorazepam 0.5 mg 11/08/19 12:44 11/12/19 08:18 Ativan PO 12/08/19 12:43 0.5 mg Q8H PRN Administration Sedation/Anxiety Magnesium Hydroxide 30 ml 11/08/19 12:44 11/11/19 16:11 Milk Of Magnesia PO 12/08/19 12:43 30 ml DAILY PRN Administration Constipation Magnesium Oxide 400 mg 11/09/19 09:00 11/12/19 08:41 Mag-Ox PO 12/09/19 08:59 400 mg QAM STACIA Administration Miconazole Nitrate 1 appln 11/09/19 11:00 11/12/19 08:41 Desenex EXT 12/09/19 10:59 1 appln BID STACIA Administration Ondansetron HCl 4 mg 11/08/19 12:44 11/12/19 00:45 Zofran Odt PO 12/08/19 12:43 4 mg Q6H PRN Administration Nausea Oxycodone HCl 5 - 10 mg 11/08/19 12:44 11/12/19 05:07 Roxicodone Immediate Rel PO 11/22/19 12:43 10 mg Q4H PRN Administration Moderate-Severe Pain Senna/Docusate Sodium 2 tab 11/08/19 21:00 11/11/19 20:31 Senokot S PO 12/08/19 20:59 2 tab HS STACIA Administration Tramadol HCl 50 - 100 mg 11/08/19 12:44 11/12/19 07:16 Ultram PO 12/08/19 12:43 100 mg Q4H PRN Administration Moderate-Severe Pain Vitamin D 3,000 units 11/08/19 21:00 11/11/19 20:32 Vitamin D3 PO 12/08/19 20:59 3,000 units QPM STACIA Administration NPO Date Last Intake of Fluids: 11/12/19 Time Last Intake of Fluids: 08:30 Date Last Intake of Solids: 11/12/19 Time Last Intake of Solids: 08:30 Past Medical History Medical History Arthritis Back problem RLE radiculopathy Hyperlipidemia Hypertension Lung nodule under surveillance- stable Obesity Thoracic aortic aneurysm 4.2cm at aortic arch, 3.8 ascending. Past Family History Family History Father Heart disease Myocardial infarction Hypertension Brother Pancreatic cancer Cancer Daughter Family history of diabetes mellitus Past Surgical History Surgical History H/O section History of colonoscopy Hx of appendectomy Hx of cholecystectomy Social History Smoking Status: Former smoker tobacco type: cigarettes Do You Dip or Chew Tobacco: No Smoking End Date: QUIT 16 YRS AGO Hx Alcohol Use: Yes Alcohol type: wine alcohol intake frequency: a few times a week Hx Substance Use: No Physical Exam Vital Signs Last Vital Signs Temp 36.8 C 11/12/19 12:39 Pulse 63 11/12/19 12:39 Resp 20 11/12/19 12:39 BP 159/72 H 11/12/19 12:39 Pulse Ox 97 11/12/19 12:39 Testing Laboratory Results 11/09/19 05:23 11/09/19 05:23 PT 10.6 Seconds (9.0-12.0) 10/24/19 10:32 INR 1.0 (0.9-1.1) 10/24/19 10:32 APTT 28.4 Seconds (21.0-31.0) 10/24/19 10:32 Urine Color Yellow 10/24/19 Unknown Urine Appearance Clear (Clear) 10/24/19 Unknown Urine pH 6.5 (4.5-7.5) 10/24/19 Unknown Ur Specific [place] 1.012 (1.000-1.030) 10/24/19 Unknown Urine Protein Negative (Negative) 10/24/19 Unknown Urine Glucose (UA) Negative (Negative) 10/24/19 Unknown Urine Ketones Negative (Negative) 10/24/19 Unknown Urine Nitrite Negative (Negative) 10/24/19 Unknown Ur Leukocyte Esterase 2+ (Negative) H 10/24/19 Unknown Urine WBC (Auto) 1-5 /hpf (0-5) 10/24/19 Unknown Urine RBC (Auto) 0-4 /hpf (0-4) 10/24/19 Unknown U Hyaline Cast (Auto) 0 /lpf (0-5) 10/24/19 Unknown U Epithel Cells (Auto) 10-20 /lpf (0-5) H 10/24/19 Unknown Urine Bacteria (Auto) Negative (Negative) 10/24/19 Unknown Blood Type A Positive 10/24/19 10:32 Antibody Screen NEGATIVE 10/24/19 10:32 10/24/19 Unknown Urine Culture - Final Urine,Clean Catch More than three types of organisms present, all high counts. Repeat collection recommended. No further identifications or sensitivities to follow.
[2019-11-12] MEDS ORDERED: BUPIVACAINE/EPINEPHRINE 0.5% MPF 1:200,000 10 ML VIAL ONE (13:10)
[2019-11-12] MEDS ORDERED: HYDROmorphone INJ 2 MG/ML SYR/VIAL IV PRN (13:15)
[2019-11-12] MEDS ORDERED: PROMETHAZINE HCL 12.5 MG in SODIUM CHLORIDE 0.9% 50 ML IV PRN (13:15)
[2019-11-12] MEDS ORDERED: ePHEDrine sulfate 50 MG/ML AMP IV PRN (13:15)
[2019-11-12] MEDS ORDERED: ONDANSETRON INJ 2 MG/ML 2 ML VIAL IV PRN (13:15)
[2019-11-12] MEDS ORDERED: METOCLOPRAMIDE HCL INJ 5 MG/ML 2 ML VIAL IV PRN (13:15)
[2019-11-12] MEDS ORDERED: fentaNYL citrate 100 MCG/2 ML VIAL IV PRN (13:15)
[2019-11-12] MEDS ORDERED: ATROPINE SULFATE 0.1 MG/ML 10ML SYR IV PRN (13:15)
--- NOTE | 2019-11-12 13:49 | Fluoroscopy Report ---
FL lumbar spine 2-3V CLINICAL HISTORY: I D COMPARISON STUDY: Lumbar spine fluoroscopic images November 08, 2019. FLUOROSCOPY TIME: 2.8 seconds. FLUOROSCOPIC IMAGES: 2 FINDINGS: Images demonstrate a previous L3-L4 discectomy, posterior decompression and bilateral pedic le screw fusion. Hardware is intact. IMPRESSION: Fluoroscopic images demonstrating a previous L3-L4 discectomy, posterior decompression a nd bilateral pedicle screw fusion. Electronically signed by: Chau Panchal M.D. 11/12/2019 1:48 PM
--- NOTE | 2019-11-12 14:11 | Operative Report ---
Post Operative Report Pre & Post Diagnosis Operation Date: 11/08/19 09:05 Pre-Op Diagnosis: LUMBAR INTERVERTEBRAL DISC DISPLACEMENT Post-Op Diagnosis: LUMBAR INTERVERTEBRAL DISC DISPLACEMENT Operation Date: 11/08/19 10:25 <No data on this case meets the specified criteria> Operation Date: 11/12/19 07:55 Pre-Op Diagnosis: Postoperative hematoma Post-Op Diagnosis: Postoperative hematoma I identified the patient and participated in the time-out.: Yes Procedure Operation Date: 11/08/19 09:05 Actual Procedures p L3-L4 Decompression /Fusion with Interbody Fusion, use of Osteoamp and Infuse, Spinal Cord Monitoring(Not Applicable) - Duy Rahman DO Operation Date: 11/08/19 10:25 <No data on this case meets the specified criteria> Operation Date: 11/12/19 07:55 Actual Procedures Incision and drainage of lumbar spine with evacuation of epidural hematoma Surgeon Duy Rahman DO Occupational Physician None Estimated Blood Loss 10 Findings Consistent with Post-Op Diagnosis Specimens None Indications Patient had been doing very nicely throughout her postoperative course but on postop day #3 she she noted marked change in status with significant back spasms and pain rating down bilateral buttocks and posterior thighs to her knees with any activity. This is again a drastic change from her status postoperatively. This coincided with the loss of her ABI drain. Subsequently we elected undergo urgent I&D lumbar spine to address evidence and presentation for a postop hematoma. Description of Procedure Patient was identified informed consent obtained and then taken to the operative suite. After successfully undergoing general intubation was placed in a prone position Alverto table on top of the Jose frame. All bony prominences well- padded eyes inspected to ensure no external pressure placed upon the this point the lumbar spine was prepped and draped in a sterile fashion. Sharp dissection through the previous incision was performed down to and exposing the epidural space. Evidence of a significant hematoma seroma was noted and evacuated. The wound was copiously irrigated new ABI drain inserted. It was then closed with 1 Vicryl fascia 2-0 Vicryl subcutaneously and 4 Monocryl for final skin closure. Steri-Strip sterile dressings placed. Patient will continue to PACU stable condition. I attest to the content of the Intraoperative Record and any orders documented therein. Any exceptions are noted below.
--- NOTE | 2019-11-12 14:58 | Anesthesiology Progress Note ---
Date of Service November 12, 2019 Anesthesia Post Procedure Vital Signs Vital Signs: Temp Pulse Pulse Resp BP Pulse Ox 11/12/19 14:45 36.9 C 56 L 16 104/58 L 99 11/12/19 14:35 58 L 17 115/55 L 100 11/12/19 14:25 66 14 126/67 100 11/12/19 14:17 36.6 C 59 L 16 122/68 100 11/12/19 12:39 36.8 C 63 20 159/72 H 97 11/12/19 07:07 36.7 C 65 16 143/84 H 98 11/11/19 23:30 36.8 C 71 146/81 H 98 11/11/19 15:50 37.1 C 66 16 134/85 99 Pain Intensity Posterior Back: Pain Intensity: 0 Lower Back: Pain Intensity: 0 Transfer of Care Handoff Completed per policy Notes Mental Status: alert / awake / arousable and participated in evaluation Patient Amnestic to Procedure: Yes Nausea / Vomiting: adequately controlled Pain: adequately controlled Airway Patency, RR, SpO2: stable & adequate BP & HR: stable & adequate Hydration State: stable & adequate Anesthetic Complications: no major complications apparent
[2019-11-12] MEDS: ASPIRIN 81 MG ECTAB PO SCH (21:53)
[2019-11-12] MEDS: DOCUSATE SODIUM/SENNA 50/8.6MG TAB PO SCH (21:53)
[2019-11-12] MEDS: CHOLECALCIFEROL 1,000 UNITS TAB PO SCH (21:53)
[2019-11-12] MEDS: DEXAMETHASONE SOD PHOSPHATE 8 MG in SYRINGE 0 ML IV SCH (21:53)
[2019-11-13] MEDS: DEXAMETHASONE SOD PHOSPHATE 8 MG in SYRINGE 0 ML IV SCH ×2 (05:55→20:13)
[2019-11-13] MEDS: OXYCODONE HCL IR 5 MG TAB (IMMEDIATE RELEASE) PO PRN ×3 (05:55→20:14)
--- NOTE | 2019-11-13 08:00 | Anesthesiology Progress Note ---
Date of Service November 13, 2019 Anesthesia Post Procedure Vital Signs Vital Signs: Temp Pulse Pulse Resp BP Pulse Ox 11/13/19 07:14 37.2 C 73 16 135/88 95 11/13/19 02:29 36.9 C 75 16 151/84 H 95 11/12/19 23:05 36.7 C 68 16 138/85 95 11/12/19 18:15 37.0 C 65 18 137/82 93 11/12/19 17:27 36.6 C 73 18 130/80 93 11/12/19 16:15 36.9 C 65 18 135/83 97 11/12/19 15:15 36.9 C 66 16 114/74 99 11/12/19 14:55 36.9 C 58 L 15 111/64 98 11/12/19 14:45 36.9 C 56 L 16 104/58 L 99 11/12/19 14:35 58 L 17 115/55 L 100 11/12/19 14:25 66 14 126/67 100 11/12/19 14:17 36.6 C 59 L 16 122/68 100 11/12/19 12:39 36.8 C 63 20 159/72 H 97 Pain Intensity Posterior Back: Pain Intensity: 0 Lower Back: Pain Intensity: 4 Notes Mental Status: alert / awake / arousable Patient Amnestic to Procedure: Yes Nausea / Vomiting: adequately controlled Pain: adequately controlled Airway Patency, RR, SpO2: stable & adequate BP & HR: stable & adequate Hydration State: stable & adequate Anesthetic Complications: no major complications apparent and Pt Satisfied with anesthetic care
[2019-11-13] MEDS: lisinopriL 10 MG TAB PO SCH (09:25)
[2019-11-13] MEDS: MAGNESIUM OXIDE 400 MG TAB PO SCH (09:26)
[2019-11-13] MEDS: CALCIUM CARBONATE 1250MG TAB PO SCH (09:26)
[2019-11-13] MEDS: MICONAZOLE NITRATE POWDER 43 GM EXT SCH ×2 (09:27→20:14)
[2019-11-13] MEDS: CYANOCOBALAMIN (VITAMIN B-12) 2,500 MCG TAB.SUBL SL SCH (09:27)
[2019-11-13] MEDS: TRAMADOL HCL 50 MG TABLET PO PRN (10:21)
--- NOTE | 2019-11-13 10:56 | Orthopedic Progress Note ---
Date of Service November 13, 2019 Assessment & Plan (1) Postoperative hematoma: This time we will maintain the ABI drain another 24 hours anticipate discharge home tomorrow. Present on Admission?: Yes Subjective Patient notes marked improvement of her back and leg symptoms. Physical Exam Physical Exam: Patient is in the chair at the bedside. She is much more comfortable today. Is good strength testing. Results & Data Vital Signs (Past 12 Hours) Vital Signs Temp Pulse Resp BP Pulse Ox 11/13/19 07:14 37.2 C 73 16 135/88 95 11/13/19 02:29 36.9 C 75 16 151/84 H 95 11/12/19 23:05 36.7 C 68 16 138/85 95
[2019-11-13] MEDS: CHOLECALCIFEROL 1,000 UNITS TAB PO SCH (20:14)
[2019-11-13] MEDS: DOCUSATE SODIUM/SENNA 50/8.6MG TAB PO SCH (20:14)
[2019-11-13] MEDS: ASPIRIN 81 MG ECTAB PO SCH (20:14)
[2019-11-14] MEDS: OXYCODONE HCL IR 5 MG TAB (IMMEDIATE RELEASE) PO PRN (05:18)
[2019-11-14] MEDS: CALCIUM CARBONATE 1250MG TAB PO SCH (07:55)
[2019-11-14] MEDS: CYANOCOBALAMIN (VITAMIN B-12) 2,500 MCG TAB.SUBL SL SCH (07:55)
[2019-11-14] MEDS: lisinopriL 10 MG TAB PO SCH (07:55)
[2019-11-14] MEDS: DEXAMETHASONE SOD PHOSPHATE 8 MG in SYRINGE 0 ML IV SCH (07:56)
[2019-11-14] MEDS: MICONAZOLE NITRATE POWDER 43 GM EXT SCH (07:56)
[2019-11-14] MEDS: MAGNESIUM OXIDE 400 MG TAB PO SCH (07:56)
--- NOTE | 2019-11-14 09:42 | Discharge Summary ---
Date of Service November 14, 2019 Admission HPI Per Admitting Provider This is a 64-year-old female who presents with chronic persistent back and leg pain. After failing extensive course of nonoperative care is here for surgical invention. Principal Diagnosis Lumbar spinal stenosis with neurogenic claudication Discharge Data Allergies Allergy/AdvReac Type Severity Reaction Status Date / Time codeine Allergy Chest Pain Verified 11/08/19 08:06 Consultations 11/08/19 12:44 Consult Case Management - Discharge Planning Routine Procedures Performed Operation Date: 11/08/19 09:05 Actual Procedures p L3-L4 Decompression /Fusion with Interbody Fusion, use of Osteoamp and Infuse, Spinal Cord Monitoring(Not Applicable) - Duy Rahman DO Operation Date: 11/08/19 10:25 <No data on this case meets the specified criteria> Operation Date: 11/12/19 07:55 Actual Procedures p Incision and Drainage Lumbar Spine - Duy Rahman DO Ordered Studies 11/08/19 09:05 FL fluoroscopy <1hr Routine FL lumbar spine 2-3V Routine 11/12/19 12:30 FL fluoroscopy <1hr Routine FL lumbar spine 2-3V Routine Hospital Course (1) Spinal stenosis of lumbar region with radiculopathy: Patient with lumbar decompression fusion tolerated well spine orthopedic for postoperative. Was progressing appropriately and then on postop day #3 had marked decline in status with back and bilateral leg pain. She was urgently returned to the OR hematoma was evacuated and a new drain inserted. She responded wonderfully from this procedure and was subsequently discharged home postop day 2 after her second procedure. As she had excellent strength testing ambulating halls without difficulty pain well controlled. Discharge instructions from the chart for further review. Total Time Total Time Spent Total Time Spent (In Minutes): 20 minutes Discharge Plan Discharge Items Patient Disposition: Home - Self-Care Reason For Visit: LUMBAR INTERVERTEBRAL DISC DISPLACEMENT Discharge Diagnosis: Lumbar spinal stenosis with radiculopathy Activity: Per Instructions section Non-emergency contact: Primary Care Provider Call non-emergency contact if: you have any medication questions Follow-up/Referrals: James Rodriguez MD [Primary Care Provider] - Diet: Regular Addtl Attending Provider Instructions: ACTIVITY RECOMMENDATIONS: SELF CARE INSTRUCTIONS AFTER THORACIC/LUMBAR FUSIONS 1. You may walk to your tolerance. It is good exercise for your legs and back. Expect some back and intermittent leg aches and pains. 2. You may perform "counter-top" level activities (make a sandwich, olga with a project, etc.). 3. No bending or lifting of more than 10 pounds or back twisting of any nature (roll like a log when turning in bed). 4. You may ride in a car for 20-30 minutes at a time. No driving until after your first visit with your doctor. 5. Frequent changes of position and restricting sitting to 30 minutes at a time will help limit the amount of back spasms and stiffness you may experience. 6. You may discontinue the use of ambulatory aids (cane, crutches, etc.) once your strength and confidence allow. 7. You may research program internship the shower and let water strike your incision when you arrive home at least once daily. Do not take a tub bath, sit in a hot tub or go into a swimming pool until after your first recheck in the office. SPECIAL CARE INSTRUCTIONS: VERY IMPORTANT TO READ AND REVIEW A. Your surgical incision has been closed with a cosmetic suture under the skin that will dissolve in about 6 weeks. In 14 days, you can use a pair of clean scissors and cut the suture that is left outside of the skin at the ends of your incision. 1. The small skin tapes can be removed 7 days after surgery if they have not fallen off by that point. 2. You may keep the wound open to air as much as possible to promote healing after post-op day number 5 unless told otherwise by your doctor. 3. If you think the wound looks like it is becoming infected (redness or worsening drainage) and/or you are experiencing fever, chill or worsening back pain and muscle spasms, contact the office so that we may evaluate you as soon as possible. B. Complications are uncommon, but please contact us if you have any signs or symptoms of: 1. wound infection (fever higher than 102.5 degrees F, redness, separation of wound, drainage, or increasing pain from the incision) 2. blood clots in legs (pain, swelling, redness and warmth in legs) 3. urinary tract infection (fever higher than 102.5 degrees F, burning upon urination or increased frequency of urination) 4. nerve problems (inability to walk on your toes or heels, numbness, loss of bowel or bladder control) 5. any other symptoms that concern you C. Please call the office at if you have any concerns or questions about your operation or recovery. D. No smoking! Smoking drastically decreases the chance of a solid fusion. E. Do not take any anti-inflammatory medications (Indocin, Advil, Motrin, Aspirin, Naprosyn, etc.) as these may inhibit the chance of a solid fusion. Tylenol is okay to take for pain. MANAGING PAIN AFTER SPINAL SURGERY 1. Narcotic medication is intended for short-term use and will be provided for surgical pain. Surgical pain usually lasts for a period of 4-6 weeks. Narcotic medication includes Percocet, Vicodin, Darvocet, Tylenol #3 or Lortab. 2. Longer-term pain is more appropriately treated with non-narcotic medication such as Tylenol ES. 3. Muscle spasm is not appropriately treated with narcotics. Muscle relaxers such as Soma, Flexeril or Skelaxin can be used along with Tylenol ES. 4. Remember that we all live with some "aches and pains". This is not unusual or uncommon after an injury or as we get older. a. Back pain is expected and may include muscle spasms for 4 to 6 weeks after surgery. The pain should gradually improve. If the pain worsens for no apparent reason, please contact the office. b. Intermittent leg pain may also be experienced and should not be concerned about unless it worsens for no apparent reason. If so, please contact the office. 5. We will provide appropriate medication within the normal guidelines of their prescribed use. We will also be very cautious and aware of potential abuse and extended duration of patients' medication needs. a. Pain medications are for your comfort and to assist with sleep and rest so that the tissue can heal. They are not provided in order to return to normal activity and should not be used through the day. To do so or worsening pain at night can result from ongoing tissue damage and development of tolerance to the prescribed medicine. 6. Please allow 2-3 days to process refills. Prescriptions will not be mailed but must be picked up at the office. FOLLOW UP VISIT: Keep your scheduled follow-up appointment. Any questions, please call the office at . Pending Studies at Discharge: No Stand-Alone Forms: My [facility], Smoking Cessation Medications and DC Order Prescriptions: New tramadol 50 mg tablet 50 mg PO Q6H PRN (Reason: pain, moderate) Qty: 30 RF: 0 oxycodone 5 mg tablet 5 mg PO Q6H PRN (Reason: pain, severe) Qty: 30 RF: 0 Continued lisinopril 30 mg tablet 30 mg PO QAM RF: 0 aspirin 81 mg tablet,delayed release (DR/EC) 81 mg PO QPM RF: 0 calcium carbonate [Calcium 600] 600 mg calcium (1,500 mg) tablet 600 mg PO QAM RF: 0 coenzyme Q10 [CoQ-10] 100 mg capsule 200 mg PO QAM RF: 0 cholecalciferol (vitamin D3) 3,000 unit tablet 3,000 units PO QPM RF: 0 magnesium 250 mg tablet 250 mg PO QAM RF: 0 mecobalamin (vitamin B12) 5,000 mcg tablet,disintegrating 5,000 mcg PO QAM RF: 0 red yeast rice 600 mg capsule 1,200 mg PO QPM RF: 0 turmeric root extract 500 mg capsule 500 mg PO QAM RF: 0 Tart Jones Extract 1,000 mg capsule 3,000 mg PO QAM RF: 0 acetaminophen [Tylenol Extra Strength] 500 mg Tablet 1,000 mg PO Q6H PRN (Reason: Pain) RF: 0 omega 3,6,9 combination no.7 92 mg (43 mg-22 [id number]) Tablet,Chewable 1 mg PO QAM RF: 0 Discontinued ibuprofen 600 mg Tablet 600 mg PO Q6H PRN (Reason: Pain) RF: 0 Discharge Orders: Discharge Order (Routine); Ordered 11/14/19 Ordered By: Duy Rahman Admission Data Admit Date/Time: 11/08/19 11:23 Attending Provider: Duy Rahman Admit Provider: Duy Rahman Primary Care Provider: James Rodriguez Other Providers: [facility]
[2019-11-14] MEDS: ACETAMINOPHEN 500 MG TAB PO PRN (11:45)
== END 2019-11-14 13:00 | disposition home or self-care (01) | DRG 454 ==
LOC: ASU 07:13 → 3E 11:23

== ENCOUNTER 2020-12-29 06:10 | Observation (INO) ==
--- NOTE | 2020-12-25 09:30 | Anesthesiology Consultation ---
Date of Service December 25, 2020 Assessment & Plan (1) Encounter for pre-operative examination: Cardiac clearance 12/09/20 Chart Review Chart Review: Acceptable Risk for Surgery and Patient NOT seen in Pre Admission Testing Consults Requested none History Surgery Operation Date: 12/29/20 11:05 Proposed Procedures p Right Total Hip Arthroplasty - Abilio Ames DO Height/Weight Height: 5 ft 10 in Weight: 111.13 kg Allergies Allergy/AdvReac Type Severity Reaction Status Date / Time amoxicillin Allergy Mild leg pain Verified 12/24/20 15:11 Penicillins Allergy Mild leg pain Verified 12/24/20 15:11 codeine Allergy Unknown Chest Pain Verified 12/24/20 15:11 Medications Home Medications Medication Instructions Recorded Confirmed Last Taken Tart Jones Extract 3,000 mg PO QPM 10/17/19 12/24/20 10/25/19 08:00 acetaminophen [Tylenol Extra 1,000 mg PO Q6H PRN 10/17/19 12/24/20 Unknown Strength] aspirin 81 mg PO QPM 10/17/19 12/24/20 10/25/19 08:00 cholecalciferol (vitamin D3) 3,000 units PO QPM 10/17/19 12/24/20 10/25/19 08:00 coenzyme Q10 [CoQ-10] 200 mg PO QAM 10/17/19 12/24/20 10/25/19 08:00 magnesium 250 mg PO QAM 10/17/19 12/24/20 10/25/19 08:00 omega 3,6,9 combination no.7 0 mg PO QPM 10/17/19 12/24/20 10/25/19 08:00 turmeric root extract 1,000 mg PO QAM 10/17/19 12/24/20 10/25/19 08:00 lisinopril 30 mg tablet 30 mg PO QAM #90 tab 09/10/20 12/24/20 Unknown meloxicam 15 mg tablet 15 mg PO QAM 09/10/20 12/24/20 Unknown atorvastatin 40 mg tablet 40 mg PO HS #90 tab 11/18/20 12/24/20 Unknown hawthorn perera 1,000 mg PO QAM 12/04/20 12/24/20 Unknown phytosterol combination no.1 1,000 mg PO BID 12/04/20 12/24/20 Unknown red yeast rice 1,200 mg PO QPM 12/04/20 12/24/20 Unknown lutein 20 mg capsule 20 mg PO QAM 12/09/20 12/24/20 Unknown niacin 400 mg (inositol niacinate 1 cap PO QAM cap 12/09/20 12/24/20 Unknown 500 mg) capsule metoprolol succinate 25 mg 25 mg PO DAILY #90 tab 12/23/20 12/24/20 Unknown tablet,extended release 24 hr multivitamin 1 tab PO QAM 12/24/20 12/24/20 Unknown Past Medical History Medical History Aortic regurgitation Arthritis Back problem RLE radiculopathy Carotid artery stenosis no evidence of hemodynamically significant stenosis B/L ICA per 12/03/20 carotid doppler study Hyperlipidemia Hypertension Lung nodule under surveillance (stable) Obesity Thoracic aortic aneurysm stable per 12/03/20 CTA, [place] [facility] [place] Past Family History Family History Father Heart disease Myocardial infarction Hypertension Brother Pancreatic cancer Cancer Daughter Family history of diabetes mellitus Denies family history of Ovarian cancer Prostate cancer Breast cancer Colorectal cancer Past Surgical History Surgical History H/O section History of colonoscopy Hx of appendectomy Hx of cholecystectomy S/P lumbar spine operation L3-L4 decompression/fusion (11/08/19) Grade view 1, MAC#3, ETT 7.0 at [facility] Status post incision and drainage Incision and drainage of lumbar spine with evacuation of epidural hematoma (11/12/20) at [facility] Social History Smoking Status: Former smoker tobacco type: cigarettes Do You Dip or Chew Tobacco: No Smoking End Date: QUIT 2002 Hx Alcohol Use: Yes Alcohol type: wine alcohol intake frequency: a few times a week Hx Substance Use: No substance use type: does not use Testing Laboratory Results Laboratory Tests 12/10/20 12/10/20 12/10/20 15:51 15:51 15:51 WBC 7.43 Hgb 13.3 Plt Count 335 PT 10.8 INR 1.0 APTT 30.0 Sodium 139 Potassium 4.2 Chloride 107 Carbon Dioxide 26 BUN 20 H Creatinine 0.91 Glucose 91 Hemoglobin A1c 12/10/20 15:51 WBC Hgb Plt Count PT INR APTT Sodium Potassium Chloride Carbon Dioxide BUN Creatinine Glucose Hemoglobin A1c 4.8 Electrocardiogram Date: 11/18/20 SR @ 68 bpm Moderate T wave abnormality consider anterior and inferior ischemia No significant change from 03/13/2019 Echocardiogram Date: 02/23/19 Normal LV size and function Aortic valve tricuspid, no stenosis with mild aortic regurgitation Ascending aortic diameter is 3.8 cm and aortic arch diameter is 4.2 cm Mitral valve competent Tricuspid valve, trace tricuspid regurgitation. PA pressure of 20 mmHg. No pericardial effusion Stress Test Date: 03/27/19 Nuclear stress test Ischemia: possible small apical Infart: None LV systolic function: Normal Calculate LV EF 73% Exercise Tolerance: Pharmacologic protocol ECG Response: Normal Other Testing CTA Chest 12/03/20 IMPRESSION: 1. Mild dilatation of the ascending thoracic aorta which measures 41 mm the level of aortic root and 38 mm at the level of the main pulmonary artery 2. No evidence of thoracic or dissection 3. Ulcerated plaque versus tiny short segment dissection of the proximal left subclavian artery 4. No evidence of focal pulmonary consolidation 5. Scattered subcentimeter pulmonary nodules the largest of which measures 6 mm. A six-month follow-up study is recommended per Fleischner criteria. Carotid doppler 12/03/20 IMPRESSION: 1. There is no sonographic evidence of hemodynamically significant stenosis in the right or left carotid arterial system. 2. Antegrade flow is shown in the vertebral arteries.
--- NOTE | 2020-12-28 16:49 | History & Physical Report ---
Date of Service December 29, 2020 Assessment & Plan (1) Degenerative joint disease of right hip: I have indicated the patient for right total hip replacement. The risks, benefits and complications of surgery were explained to the patient which include but not limited to infection, acute blood loss, DVT/PE, injury to nerves, vessels, bone, soft tissue, arthrofibrosis, chronic pain, failure of the prosthesis, hip dislocation, leg length discrepancy, need for additional surgery, cardiac and pulmonary events and . The patient wished to proceed with surgery and informed consent was obtained at this time. We will plan for 81mg ASA BID post-operatively for DVT prophylaxis. Upon discharge the patient will be discharged home with home health services. Appropriate clearances by PCP and cardiology were obtained. Patient asymptomatic for UTI. History of Present Illness Chief Complaint: Right hip pain/DJD Primary Care Provider: aJmes Rodriguez MD The patient is a 65 year old female who presents with complaints of severe right hip pain and DJD. The patient has failed outpatient conservative treatments to this point which included NSAIDs, IA corticosteroid injection, home exercise/walking program. The patient's pain and limited function have progressed to the point where they severely hinder their activities of daily li ving and they no longer tolerate exercise programs. They are requesting to proceed with total hip replacement surgery. Allergies Allergy/AdvReac Type Severity Reaction Status Date / Time amoxicillin Allergy Mild leg pain Verified 12/29/20 07:09 Penicillins Allergy Mild leg pain Verified 12/29/20 07:09 codeine Allergy Unknown Chest Pain Verified 12/29/20 07:09 Home Medications Medication Instructions Recorded Confirmed Type Tart Jones Extract 3,000 mg PO QPM 10/17/19 12/29/20 History acetaminophen [Tylenol Extra 1,000 mg PO Q6H PRN 10/17/19 12/29/20 History Strength] aspirin 81 mg PO QPM 10/17/19 12/29/20 History cholecalciferol (vitamin D3) 3,000 units PO QPM 10/17/19 12/29/20 History coenzyme Q10 [CoQ-10] 200 mg PO QAM 10/17/19 12/29/20 History magnesium 250 mg PO QAM 10/17/19 12/29/20 History omega 3,6,9 combination no.7 0 mg PO QPM 10/17/19 12/29/20 History turmeric root extract 1,000 mg PO QAM 10/17/19 12/29/20 History lisinopril 30 mg tablet 30 mg PO QAM #90 tab 09/10/20 12/29/20 Rx meloxicam 15 mg tablet 15 mg PO QAM 09/10/20 12/29/20 History atorvastatin 40 mg tablet 40 mg PO HS #90 tab 11/18/20 12/29/20 Rx hawthorn perera 1,000 mg PO QAM 12/04/20 12/29/20 History phytosterol combination no.1 1,000 mg PO BID 12/04/20 12/29/20 History red yeast rice 1,200 mg PO QPM 12/04/20 12/29/20 History lutein 20 mg capsule 20 mg PO QAM 12/09/20 12/29/20 History niacin 400 mg (inositol niacinate 1 cap PO QAM cap 12/09/20 12/29/20 History 500 mg) capsule metoprolol succinate 25 mg 25 mg PO DAILY #90 tab 12/23/20 12/29/20 Rx tablet,extended release 24 hr multivitamin 1 tab PO QAM 12/24/20 12/29/20 History Past Med/Surg History Medical History Aortic regurgitation Arthritis Back problem RLE radiculopathy Carotid artery stenosis no evidence of hemodynamically significant stenosis B/L ICA per 12/03/20 carotid doppler study Hyperlipidemia Hypertension Lung nodule under surveillance (stable) Obesity Thoracic aortic aneurysm stable per 12/03/20 CTA, under surveillance by [facility] [place] Surgical History H/O section History of colonoscopy Hx of appendectomy Hx of cholecystectomy S/P lumbar spine operation L3-L4 decompression/fusion (11/08/19) Grade view 1, MAC#3, ETT 7.0 at [facility] Status post incision and drainage Incision and drainage of lumbar spine with evacuation of epidural hematoma (11/12/20) at [facility] Family History Father Heart disease Myocardial infarction Hypertension Brother Pancreatic cancer Cancer Daughter Family history of diabetes mellitus Denies family history of Ovarian cancer Prostate cancer Breast cancer Colorectal cancer Social History Smoking Status: Former smoker Age Started Using Tobacco: 20; Age Quit Using Tobacco: 48; packs per day: 1; Smoking End Date: QUIT 2002; Second Hand Exposure: Yes (FATHER SMOKED); Do You Dip or Chew Tobacco: No; Hx Alcohol Use: Yes Alcohol type: wine Alcohol Intake Frequency Comment: 5 drinks per week Hx Substance Use: No Preferred Language: Vietnamese Communication Ability: Effective Hearing Ability: Normal Program Manufacturing Leader Required: No Beliefs That Will Affect Care: None marital status: Current Living Situation: Spouse current occupational status: employed and other 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 Other Information That Helps Us Care for You: No Feels Safe at Home: Yes Safety Concerns: Feels Safe At This Time Childhood Exposure to Second-Hand Smoke: Yes caffeine: Yes during the past year weight has: remained stable Dental Care, Regularly: Yes Physical Activity Frequency: Other Seatbelt Use: always Sunscreen Use: Yes Assistive Devices: Cane, Contacts and Glasses Assistive Devices Comment: WILL WEAR GLASSES DOS Review of Systems Review of Systems: All systems reviewed & are unremarkable except as noted in HPI & below Constitutional: as per Subjective / HPI Physical Exam Physical Exam: RLE NVSI +EHL/FHL/TA/GS SILT grossly, +2 DP pulse, compartments soft NT, limited painful ROM of the hip, antalgic gait. Constitutional: WD/WN, vitals as above Eyes: PERRL, conjunctivae normal, anicteric sclerae ENMT: external ear and nose normal, oropharynx normal Neck: trachea midline, no thyromegaly Respiratory: normal respiratory effort, lungs clear to auscultation Cardiovascular: RRR, no murmur, no edema Gastrointestinal (Abdomen): normal bowel sounds, soft, nontender, no hepatosplenomegaly Musculoskeletal: no cyanosis or clubbing, extremities motor strength 5/5 Skin: no rashes, warm and dry Neurologic: patellar DTR's 2+ bilat, sensation intact Psychiatric: A+Ox3, euthymic affect Lymphatic: no cervical or axillary lymphadenopathy Results & Data Results & Data ([facility]) Diagnostic Findings Multiple views of the hip demonstrates severe DJD with complete loss of the joint space. +osteophytes, +sclerosis, +subchondral cysts.
[~2020-12-29 06:10] MED LIST changes: -CEFAZOLIN 2000MG 2,000 MG/15 ML SYR IV SCH; +FAMOTIDINE 20 MG TAB PO SCH; +GABAPENTIN 300 MG CAP PO SCH; -GABAPENTIN 600 MG DOSE PO SCH; -HYDROmorphone INJ 2 MG/ML SYR/VIAL ONE; -LR 15ML/HR IV SCH; +LR 500ML BOLUS, THEN 15ML/HR IV SCH; +METOCLOPRAMIDE HCL 10 MG TABLET PO SCH; -MIDAZOLAM HCL 1 MG/ML 2ML VIAL ONE; +ROPIVACAINE 0.5% HCL/PF 150 MG, BUPIVACAINE 0.75% MPF 20 ML, EPINEPHrine 30MG/30ML (OR ... INFIL SCH; +TRANEXAMIC ACID 1,000 MG **IV Intra-op IV SCH; +TRANEXAMIC ACID 1,000 MG **IV Pre-op IV SCH; +ceFAZolin 2000MG 2,000 MG/15 ML SYR IV SCH; +dexAMETHasone 4 MG TAB PO SCH; -fentaNYL citrate 100 MCG/2 ML VIAL ONE
[2020-12-29] MEDS ORDERED: BUPIVACAINE 0.5 % 5 MG/1 ML PF 10ML VIAL ONE (06:34)
[2020-12-29] MEDS ORDERED: ATROPINE SULFATE 0.1 MG/ML 10ML SYR IV PRN (09:01)
[2020-12-29] MEDS ORDERED: ONDANSETRON INJ 2 MG/ML 2 ML VIAL IV PRN ×2 (09:01→13:47)
[2020-12-29] MEDS ORDERED: fentaNYL citrate 100 MCG/2 ML VIAL IV PRN (09:01)
[2020-12-29] MEDS ORDERED: ePHEDrine sulfate 50 MG/ML AMP IV PRN (09:01)
--- NOTE | 2020-12-29 09:37 | History & Physical Bridge Note ---
Date of Service December 29, 2020 History & Physical Bridge Note I have examined the patient, reviewed the History & Physical and in the interval since the performance of the History & Physical I have noted the following changes of clinical significance: no changes noted
--- NOTE | 2020-12-29 12:30 | Post Operative Brief Note ---
Immediate Post Op Note v1 Date of Surgery December 29, 2020 Pre & Post Diagnosis Operation Date: 12/29/20 09:35 Pre-Op Diagnosis: Degenerative joint disease of right hip Post-Op Diagnosis: Degenerative joint disease of right hip I identified the patient and participated in the time-out.: Yes Procedure Operation Date: 12/29/20 09:35 Actual Procedures p Right Total Hip Arthroplasty(Right) - Abilio Ames DO Surgeon Abilio Ames DO Carnival Worker Colten Jim Estimated Blood Loss 300 Findings Consistent with Post-Op Diagnosis Fluids 1 L LR Specimens femoral head Anesthesia Type Spinal MAC Complications none Disposition Disposition: Recovery Room Overlapping Procedure I was present for: the critical portions of procedure. I was immediately available: during the entire case. Back up surgeon: was not required during procedure.
--- NOTE | 2020-12-29 12:33 | Operative Report ---
Post Operative Report Pre & Post Diagnosis Operation Date: 12/29/20 09:35 Pre-Op Diagnosis: Degenerative joint disease of right hip Post-Op Diagnosis: Degenerative joint disease of right hip I identified the patient and participated in the time-out.: Yes Procedure Operation Date: 12/29/20 09:35 Actual Procedures p Right Total Hip Arthroplasty(Right) - Abilio Ames DO Surgeon Abilio Ames DO Gas Appliance Servicer Colten Jim Estimated Blood Loss 300 Findings Consistent with Post-Op Diagnosis Fluids 1 L LR Specimens femoral head Anesthesia Type Spinal MAC Complications none Disposition Disposition: Recovery Room Indications The patient is a 65-year-old female who presents with severe progressive right hip DJD who has failed outpatient conservative treatments. I indicated the patient for a total hip replacement and the risks and benefits were explained in detail which included but not limited to infection, bleeding, blood clot, damage to surrounding bone, nerves, vessels, soft tissue, hip dislocation, failure of the prosthesis, leg length discrepancy, need for additional surgery and . The patient agreed to proceed with replacement of the hip and informed consent was obtained. Appropriate clearances were obtained. Description of Procedure COMPONENTS USED: Jaxon [employer]omet hip system: G7 acetabulum size 52, femur size 13.5 extended offset, femoral head 36+0, liner 52x36, acetabular screw 35 mm x 1. Following induction of adequate spinal anesthesia, the patient was transferred to the OR table and placed in lateral decubitus position with left hip down. The right hip was prepped and draped in the typical sterile fashion. A timeout was performed, patient identified and site raciel confirmed. Appropriate antibiotics were given. A standard posterolateral/Amelia-Langenbeck incision was made. Subcutaneous tissue was sharply dissected. Electrocautery was utilized for hemostasis. The fascia was incised throughout the length of the wound and retracted with the Charnley retractor. The bursa was taken down and the short external rotators were identified. The piriformis was tagged with #1 Vicryl. The short external rotators and capsule were divided from the posterior aspect of the femur using electrocautery. The posterior capsule was tagged with #1 Vicryl. Both external rotators and posterior capsule were swept posterior and protected, along with protecting the sciatic nerve. The hip was dislocated by flexion and internally rotation in a controlled manner and exposure of the femoral neck was gained with an old-style Hohmann and a blunt cobra retractor. A femoral cutting guide was utilized for making the appropriate level femoral neck cut with reciprocating saw. The femoral head was removed, measured and reserved on the back table. Next, attention was turned to the acetabulum. A posterior and anterior offset retractor was placed to gain adequate exposure. Acetabular labrum as well as posterior capsule elements were removed using electrocautery and forceps. Fovea centralis was cleared of all soft tissue. Sequential reaming was performed starting at 44 mm and carried up to a 51 mm and decision was made to proceed with impaction of a 52 mm G7 Osteo-Ti cup. This was impacted and held using a single 35 mm acetabular screw. The trial acetabular liner was placed at this time. Next, attention was turned to the proximal femur where a Bovie and pickup was used to further clear short external rotators from their insertion on the femur. Box osteotome and canal f melvin was used to gain access to the femoral canal and the lateral reamer on power was used to further open the proximal lateral canal. Sequentially rasping was carried up to a 13.5 which gave good fit and fill of the proximal femur. A trial reduction was carried out with a extended offset femoral neck component a 36+0 mm femoral head. The trial reduction was stable in all degrees of rotation with no [id number] impingement. The hip was dislocated, trial components were removed and access to the acetabulum was re-established. The trial liner was removed and the cup was irrigated to ensure all debris was removed. The final acetabular liner was inserted and properly seated in the cup. Access to the femur was once more gained and the size 13.5 femoral stem with extended offset was impacted into position. The hip was once more assessed with the 36+0 mm femoral head. Stability was accessed and found to be excellent with equal leg lengths. The hip was dislocated for the last time and the final 36+0 ceramic femoral head was impacted in place and the hip was reduced. Range of motion was checked once again and found to be stable. A Betadine soak was performed. After 3 minutes, the hip was once more irrigated with copious sterile saline solution with bacitracin. The derrell-incisional soft tissue was injected utilizing [place] ortho mix which includes a combination of Ropivicaine 0.5% 150mg, Bupivicaine 0.5%/Epinephrine 1:200,000 30ml, Toradol 30mg, Dexamethasone 4mg, Ketamine 10mg, Clonidine 100mcg and NSS 30ml Orthomix solution. The piriformis, external rotators and capsule were repaired to the greater trochanter through bone tunnels using #5 FiberWire. The fascia was closed using #1 Vicryl, subcutaneous tissue was closed using 2-0 Vicryl, and skin was closed with bryon. A sterile dry dressing was applied which included CARLOS incisional VAC. The patient tolerated the procedure well and was transported to PACU in stable condition. Due to the complex nature of the procedure, the entire surgery was performed with the operational assistance of Colten Jmi PA-C. The it administrative assistant, under direct supervision, was involved in the actual performance of all aspects of the surgical procedure including patient positioning, hemostasis, tissue retraction, instrument management and wound closure. I attest to the content of the Intraoperative Record and any orders documented therein. Any exceptions are noted below.
--- NOTE | 2020-12-29 13:14 | XRay Report ---
XR hip 1V RT w pelvis HISTORY: 65 years-old Female IN PACU - A/P PELVIS and LATERAL HIP right hip total joint arthroplast y COMPARISON: None TECHNIQUE: AP view of the pelvis with 2 views of the right hip FINDINGS: Mild to moderate left hip osteoarthritis. No acute fracture, dislocation or opaque foreign body. Righ t hip total joint arthroplasty with expected postoperative soft tissue swelling and deep tissue air w ith lateral skin bryon. IMPRESSION: Right hip total joint arthroplasty with expected postoperative changes. ACT 112: Negative or not required by law. The above report was generated using voice recognition software. It may contain grammatical, syntax o r spelling errors. Electronically signed by: Bradley Lopez M.D. 12/29/2020 1:13 PM
[2020-12-29] MEDS ORDERED: diphenhydrAMINE Capsule 25 MG CAP PO PRN (13:47)
[2020-12-29] MEDS ORDERED: MAGNESIUM HYDROXIDE SUSP 30 ML UDC PO PRN (13:47)
[2020-12-29] MEDS ORDERED: NALOXONE HCL 0.4 MG/1 ML VIAL/CARP IV PRN (13:47)
[2020-12-29] MEDS ORDERED: HYDROmorphone INJ 0.5 MG/0.5 ML SYR IV PRN (13:47)
[2020-12-29] MEDS ORDERED: METOCLOPRAMIDE HCL INJ 5 MG/ML 2 ML VIAL IV PRN (13:47)
[2020-12-29] MEDS ORDERED: bisacodyL 10 MG SUPP PR PRN (13:47)
[2020-12-29] MEDS: ACETAMINOPHEN 500 MG TAB PO SCH ×2 (14:12→21:00)
[2020-12-29] MEDS: SODIUM CHLORIDE 0.9% 1000ML 1,000 ML IV SCH (14:12)
[2020-12-29] MEDS: KETOROLAC TROMETHAMINE 15 MG/ML VIAL IV SCH ×2 (15:00→21:00)
--- NOTE | 2020-12-29 16:41 | Orthopedic Progress Note ---
Date of Service December 29, 2020 Assessment & Plan (1) Degenerative joint disease of right hip: Status post right total hip arthroplasty -Ancef x24 -DVT prophylaxis: SCDs, teds, 81 mg ASA twice daily -Weight-bear as tolerates right lower extremity -Posterior hip precautions -PT/OT -Postoperative x-ray demonstrates a well aligned well fixed prosthesis without fracture or dislocation. -A.m. labs -DC planning Admission and Anticipated Discharge Date Admission Date: December 29, 2020 Subjective Post Operative Progress Note Patient seen sitting up in bed, comfortable, denies complaints, pain well controlled, no acute issues. Review of Systems Review of Systems: All systems reviewed & are unremarkable except as noted in HPI & below Constitutional: as per Subjective / HPI Physical Exam Physical Exam: RLE NVSI +EHL/FHL/TA/GS SILT grossly, +2 DP pulse, compartments soft NT, dressing cdi. Constitutional: WD/WN, vitals as above Results & Data ([place]) Vital Signs (Past 12 Hours) Vital Signs Temp Pulse Pulse Resp BP BP Pulse Ox 12/29/20 15:31 36.8 C 79 16 111/75 96 12/29/20 14:35 36.4 C L 74 18 117/80 96 12/29/20 14:08 77 16 112/75 95 12/29/20 13:35 37.0 C 72 18 121/73 97 12/29/20 13:10 73 16 103/63 98 12/29/20 13:00 76 18 96/64 L 99 12/29/20 12:53 37.1 C 78 12 97/55 L 99 12/29/20 08:41 71 18 149/91 H 97 12/29/20 07:14 37.2 C 75 18 165/86 H 97
[2020-12-29] MEDS: ceFAZolin 2000MG 2,000 MG/15 ML SYR IV SCH (17:10)
[2020-12-29] MEDS: oxyCODONE HCL IR 5 MG TAB (IMMEDIATE RELEASE) PO PRN ×2 (17:10→20:53)
[2020-12-29] MEDS: SENNA 8.6 MG TAB PO SCH (20:50)
[2020-12-29] MEDS: DOCUSATE SODIUM 100 MG CAP PO SCH (20:50)
[2020-12-29] MEDS: ATORVASTATIN 40 MG TAB PO SCH (20:50)
[2020-12-30] MEDS: ceFAZolin 2000MG 2,000 MG/15 ML SYR IV SCH (01:03)
[2020-12-30] MEDS: oxyCODONE HCL IR 5 MG TAB (IMMEDIATE RELEASE) PO PRN ×5 (01:04→21:06)
[2020-12-30] MEDS: SODIUM CHLORIDE 0.9% 1000ML 1,000 ML IV SCH (01:04)
[2020-12-30] MEDS: KETOROLAC TROMETHAMINE 15 MG/ML VIAL IV SCH ×2 (04:00→10:01)
[2020-12-30] MEDS: ACETAMINOPHEN 500 MG TAB PO SCH ×3 (06:29→21:06)
[2020-12-30 06:44] LABS: Hematocrit (blood only) 27.5 % (37-47); Hemoglobin 9.3 g/dL (12.0-16.0); Immature Granulocytes # (auto) 0.01 K/uL (0.00-0.02); Immature Granulocytes % (auto) 0.1 %; Lymphocytes # (auto) 0.71 K/uL (1.2-3.4); Lymphocytes % (auto) 7.9 %; Mean Corpuscular Hemoglobin 32.9 pg (25-34); Mean Corpuscular Hgb Conc 33.8 g/dL (32-36); Mean Corpuscular Volume 97.2 fL (80-100); Mean Platelet Volume 10.6 fL (7.4-10.4); Monocytes # (auto) 0.69 K/uL (0.11-0.59); Monocytes % (auto) 7.7 %; Neutrophils # (auto) 7.56 K/uL (1.4-6.5); Neutrophils % (auto) 84.3 %; Platelet Count 215 K/uL (130-400); RDW Coefficient of Variation 12.8 % (11.5-14.5); RDW Standard Deviation 44.9 fL (36.4-46.3); Red Blood Count 2.83 M/uL (4.2-5.4); White Blood Count 8.97 K/uL (4.8-10.8)
[2020-12-30 07:14] LABS: BUN Creatinine Ratio 22.6 (10-20); Calcium 9.1 mg/dl (8.5-10.1); Creatinine Clr Calc Pharmacy 77.7 ml/min; Est GFR (African American) 70.2; Est GFR (Non-African American) 60.5; Potassium 4.4 mmol/L (3.5-5.1)
[2020-12-30] MEDS: MULTIVITAMIN TAB PO SCH (08:27)
[2020-12-30] MEDS: DOCUSATE SODIUM 100 MG CAP PO SCH ×2 (08:28→21:06)
[2020-12-30] MEDS: METOPROLOL SUCC 25MG EXT REL TAB PO SCH (08:28)
[2020-12-30] MEDS: ASPIRIN 81 MG ECTAB PO SCH ×2 (08:28→21:06)
[2020-12-30] MEDS: lisinopril 10 MG TAB PO SCH (08:29)
--- NOTE | 2020-12-30 12:15 | Orthopedic Progress Note ---
Date of Service December 30, 2020 Assessment & Plan (1) Degenerative joint disease of right hip: Status post right total hip arthroplasty POD#1 -Ancef x24 -DVT prophylaxis: SCDs, teds, 81 mg ASA twice daily -Weight-bear as tolerates right lower extremity -Posterior hip precautions -PT/OT -Postoperative x-ray demonstrates a well aligned well fixed prosthesis without fracture or dislocation. -A.m. labs - as above, hgb 9.3 -DC planning - home with Admission and Anticipated Discharge Date Admission Date: December 29, 2020 Subjective Post Operative Progress Note Patient seen sitting up in bed, comfortable, denies complaints, pain well controlled, no acute issues. Denies F/C/N/V/SOB/CP. Review of Systems 2 Review of Systems: All systems reviewed & are unremarkable except as noted in HPI & below Constitutional: as per Subjective / HPI Physical Exam Physical Exam: RLE NVSI +EHL/FHL/TA/GS SILT grossly, +2 DP pulse, compartments soft NT, dressing cdi. Constitutional: WD/WN, vitals as above Results & Data ([facility]) Vital Signs (Past 12 Hours) Vital Signs Temp Pulse Pulse Resp BP Pulse Ox 12/30/20 11:49 36.5 C 67 16 103/68 96 12/30/20 08:24 37.1 C 65 18 111/72 98 12/30/20 03:44 36.8 C 64 16 114/76 97 Laboratory Results 12/30/20 12/30/20 12/30/20 Range/Units 05:45 05:45 05:45 WBC 8.97 (4.8-10.8) K/uL RBC 2.83 L (4.2-5.4) M/uL Hgb 9.3 L (12.0-16.0) g/dL Hct 27.5 L (37-47) % MCV 97.2 (80-100) fL MCH 32.9 (25-34) pg MCHC 33.8 (32-36) g/dL RDW Std Deviation 44.9 (36.4-46.3) fL RDW Coeff of Brittnee 12.8 (11.5-14.5) % Plt Count 215 (130-400) K/uL MPV 10.6 H (7.4-10.4) fL Immature Gran % (Auto) 0.1 % Neut % (Auto) 84.3 % Lymph % (Auto) 7.9 % Greer % (Auto) 7.7 % Eos % (Auto) 0.0 % Baso % (Auto) 0.0 % Neut # (Auto) 7.56 H (1.4-6.5) K/uL Lymph # (Auto) 0.71 L (1.2-3.4) K/uL Greer # (Auto) 0.69 H (0.11-0.59) K/uL Eos # (Auto) 0.00 (0-0.5) K/uL Baso # (Auto) 0.00 (0-0.2) K/uL Immature Gran # (Auto) 0.01 (0.00-0.02) K/uL Sodium 140 (136-145) mmol/L Potassium 4.4 (3.5-5.1) mmol/L Chloride 111 H (98-107) mmol/L Carbon Dioxide 22 (21-32) mmol/L Anion Gap 7.0 (3-11) BUN 22 H (7-18) mg/dl Creatinine 0.98 (0.6-1.2) mg/dl Est Cr Clr Drug Dosing 77.7 ml/min Est GFR ( Amer) 70.2 Est GFR (Non-Af Amer) 60.5 BUN/Creatinine Ratio 22.6 H (10-20) Glucose 116 H (70-99) mg/dl Calcium 9.1 (8.5-10.1) mg/dl Hepatitis C Ab Screen Neg (Neg)
[2020-12-30] MEDS: ATORVASTATIN 40 MG TAB PO SCH (21:03)
[2020-12-30] MEDS: CeleBREX 200 MG CAP PO SCH (21:06)
[2020-12-30] MEDS: SENNA 8.6 MG TAB PO SCH (21:06)
[2020-12-31 06:26] LABS: Basophils # (auto) 0.01 K/uL (0-0.2); Basophils % (auto) 0.2 %; Eosinophils # (auto) 0.06 K/uL (0-0.5); Eosinophils % (auto) 1.1 %; Hematocrit (blood only) 25.4 % (37-47); Hemoglobin 8.5 g/dL (12.0-16.0); Immature Granulocytes # (auto) 0.01 K/uL (0.00-0.02); Immature Granulocytes % (auto) 0.2 %; Lymphocytes # (auto) 1.25 K/uL (1.2-3.4); Lymphocytes % (auto) 23.6 %; Mean Corpuscular Hemoglobin 32.8 pg (25-34); Mean Corpuscular Hgb Conc 33.5 g/dL (32-36); Mean Corpuscular Volume 98.1 fL (80-100); Mean Platelet Volume 10.6 fL (7.4-10.4); Monocytes # (auto) 0.59 K/uL (0.11-0.59); Monocytes % (auto) 11.1 %; Neutrophils # (auto) 3.38 K/uL (1.4-6.5); Neutrophils % (auto) 63.8 %; Platelet Count 196 K/uL (130-400); RDW Coefficient of Variation 13.1 % (11.5-14.5); RDW Standard Deviation 46.5 fL (36.4-46.3); Red Blood Count 2.59 M/uL (4.2-5.4)
[2020-12-31] MEDS: ACETAMINOPHEN 500 MG TAB PO SCH ×3 (06:41→21:07)
[2020-12-31 06:51] LABS: Calcium 8.9 mg/dl (8.5-10.1); Creatinine Clr Calc Pharmacy 79.3 ml/min; Est GFR (African American) 71.9; Est GFR (Non-African American) 62.1; Potassium 4.6 mmol/L (3.5-5.1)
[2020-12-31] MEDS: ASPIRIN 81 MG ECTAB PO SCH ×2 (09:03→21:07)
[2020-12-31] MEDS: DOCUSATE SODIUM 100 MG CAP PO SCH ×2 (09:03→21:05)
[2020-12-31] MEDS: CeleBREX 200 MG CAP PO SCH ×2 (09:03→21:07)
[2020-12-31] MEDS: lisinopril 10 MG TAB PO SCH (09:04)
[2020-12-31] MEDS: MULTIVITAMIN TAB PO SCH (09:04)
[2020-12-31] MEDS: METOPROLOL SUCC 25MG EXT REL TAB PO SCH (09:04)
[2020-12-31] MEDS: oxyCODONE HCL IR 5 MG TAB (IMMEDIATE RELEASE) PO PRN ×3 (09:09→21:07)
--- NOTE | 2020-12-31 10:27 | Orthopedic Progress Note ---
Date of Service December 31, 2020 Assessment & Plan (1) Degenerative joint disease of right hip: Status post right total hip arthroplasty POD#2 -Ancef x24 -DVT prophylaxis: SCDs, teds, 81 mg ASA twice daily -Weight-bear as tolerates right lower extremity -Posterior hip precautions -PT/OT -Postoperative x-ray demonstrates a well aligned well fixed prosthesis without fracture or dislocation. -A.m. labs - as above, hgb 8.5 -DC planning - home with POD#1 -Ancef x24 -DVT prophylaxis: SCDs, teds, 81 mg ASA twice daily -Weight-bear as tolerates right lower extremity -Posterior hip precautions -PT/OT -Postoperative x-ray demonstrates a well aligned well fixed prosthesis without fracture or dislocation. -A.m. labs - as above, hgb 9.3 -DC planning - home with Admission and Anticipated Discharge Date Admission Date: December 29, 2020 Subjective Post Operative Progress Note Patient seen sitting in chair at bedside, comfortable, denies complaints, pain well controlled, no acute issues. Denies F/C/N/V/SOB/CP. Review of Systems Review of Systems: All systems reviewed & are unremarkable except as noted in HPI & below Constitutional: as per Subjective / HPI Physical Exam Physical Exam: RLE NVSI +EHL/FHL/TA/GS SILT grossly, +2 DP pulse, compartments soft NT, dressing cdi. Constitutional: WD/WN, vitals as above Results & Data ([facility]) Vital Signs (Past 12 Hours) Vital Signs Temp Pulse Resp BP Pulse Ox 12/31/20 09:02 117/73 12/31/20 07:50 36.8 C 69 16 119/82 97 12/30/20 23:15 36.7 C 65 16 125/78 99 Laboratory Results 12/31/20 12/31/20 Range/Units 05:57 05:57 WBC 5.30 (4.8-10.8) K/uL RBC 2.59 L (4.2-5.4) M/uL Hgb 8.5 L (12.0-16.0) g/dL Hct 25.4 L (37-47) % MCV 98.1 (80-100) fL MCH 32.8 (25-34) pg MCHC 33.5 (32-36) g/dL RDW Std Deviation 46.5 H (36.4-46.3) fL RDW Coeff of Brittnee 13.1 (11.5-14.5) % Plt Count 196 (130-400) K/uL MPV 10.6 H (7.4-10.4) fL Immature Gran % (Auto) 0.2 % Neut % (Auto) 63.8 % Lymph % (Auto) 23.6 % [place] % (Auto) 11.1 % Eos % (Auto) 1.1 % Baso % (Auto) 0.2 % Neut # (Auto) 3.38 (1.4-6.5) K/uL Lymph # (Auto) 1.25 (1.2-3.4) K/uL [place] # (Auto) 0.59 (0.11-0.59) K/uL Eos # (Auto) 0.06 (0-0.5) K/uL Baso # (Auto) 0.01 (0-0.2) K/uL Immature Gran # (Auto) 0.01 (0.00-0.02) K/uL Sodium 143 (136-145) mmol/L Potassium 4.6 (3.5-5.1) mmol/L Chloride 114 H (98-107) mmol/L Carbon Dioxide 26 (21-32) mmol/L Anion Gap 3.0 (3-11) BUN 24 H (7-18) mg/dl Creatinine 0.96 (0.6-1.2) mg/dl Est Cr Clr Drug Dosing 79.3 ml/min Est GFR ( Amer) 71.9 Est GFR (Non-Af Amer) 62.1 BUN/Creatinine Ratio 25.0 H (10-20) Glucose 81 (70-99) mg/dl Calcium 8.9 (8.5-10.1) mg/dl
[2020-12-31 18:29] LABS: Hematocrit (blood only) 28.7 % (37-47); Hemoglobin 9.6 g/dL (12.0-16.0)
[2020-12-31] MEDS: ATORVASTATIN 40 MG TAB PO SCH (21:05)
[2020-12-31] MEDS: SENNA 8.6 MG TAB PO SCH (21:05)
[2021-01-01] MEDS: oxyCODONE HCL IR 5 MG TAB (IMMEDIATE RELEASE) PO PRN ×2 (04:31→11:07)
[2021-01-01] MEDS: ACETAMINOPHEN 500 MG TAB PO SCH (05:31)
[2021-01-01 06:25] LABS: Basophils # (auto) 0.02 K/uL (0-0.2); Basophils % (auto) 0.4 %; Eosinophils # (auto) 0.18 K/uL (0-0.5); Eosinophils % (auto) 3.4 %; Hematocrit (blood only) 25.9 % (37-47); Hemoglobin 8.5 g/dL (12.0-16.0); Lymphocytes # (auto) 1.65 K/uL (1.2-3.4); Lymphocytes % (auto) 30.7 %; Mean Corpuscular Hemoglobin 32.6 pg (25-34); Mean Corpuscular Hgb Conc 32.8 g/dL (32-36); Mean Corpuscular Volume 99.2 fL (80-100); Mean Platelet Volume 10.4 fL (7.4-10.4); Monocytes # (auto) 0.62 K/uL (0.11-0.59); Monocytes % (auto) 11.5 %; Platelet Count 214 K/uL (130-400); RDW Coefficient of Variation 13.2 % (11.5-14.5); RDW Standard Deviation 47.8 fL (36.4-46.3); Red Blood Count 2.61 M/uL (4.2-5.4); White Blood Count 5.37 K/uL (4.8-10.8)
[2021-01-01 06:55] LABS: BUN Creatinine Ratio 24.1 (10-20); Calcium 8.4 mg/dl (8.5-10.1); Creatinine Clr Calc Pharmacy 89.6 ml/min; Est GFR (African American) 83.3; Est GFR (Non-African American) 71.9; Potassium 4.6 mmol/L (3.5-5.1)
[2021-01-01] MEDS: METOPROLOL SUCC 25MG EXT REL TAB PO SCH (08:14)
[2021-01-01] MEDS: DOCUSATE SODIUM 100 MG CAP PO SCH (08:15)
[2021-01-01] MEDS: lisinopril 10 MG TAB PO SCH (08:15)
[2021-01-01] MEDS: CeleBREX 200 MG CAP PO SCH (08:16)
[2021-01-01] MEDS: MULTIVITAMIN TAB PO SCH (08:16)
[2021-01-01] MEDS: ASPIRIN 81 MG ECTAB PO SCH (08:16)
--- NOTE | 2021-01-01 11:04 | Orthopedic Progress Note ---
Date of Service January 01, 2021 Assessment & Plan (1) Degenerative joint disease of right hip: POD 3 Status post right total hip arthroplasty Repeat hemoglobin last night was 9.6. Back to 8.5 this morning. Vital signs stable, afebrile. Patient feeling little better today. Discussed going home of which she feels she is capable. Continue PT/OT DVT prophylaxis with aspirin p.o. twice daily, SCDs, MITCH hose Pain management as written. DC planning-patient planning for home health services upon discharge. Discussed case with Dr. Ames. Plan for discharge to home today. Admission and Anticipated Discharge Date Admission Date: December 29, 2020 Supervising Physician Co-Signing Physician Notes Patient seen and examined, agree with above assessment plan, doing well and feeling better today. Right lower extremity physical exam neurovascular sensory intact grossly, +2 dorsalis pedis pulse, dressing clean dry and intact Postoperative day #3 status post right total hip arthroplasty DVT prophylaxis: SCDs, teds, ASA twice daily Weight-bear as tolerated right lower extremity PT/OT A.m. labs: As above, hemoglobin 8.5 DC home with home health Subjective Postop day 3 Patient sitting in her chair at the bedside. States she underwent PT this morning and walked down the hallway and back. She states that she felt fine during the walk. She felt tired after the walk though. No other complaints. Denies shortness of breath, chest pain, lightheadedness. Review of Systems Review of Systems: All systems reviewed & are unremarkable except as noted in HPI & below Constitutional: as per Subjective / HPI Physical Exam Physical Exam: Medardo dressing intact. Thigh with mild swelling. Calves are soft nontender. Neurovascular is intact. Toes are mobile. Leg lengths appear equal. Results & Data ([facility]) Vital Signs (Past 12 Hours) Vital Signs Temp Pulse Resp BP Pulse Ox 01/01/21 07:45 36.9 C 63 16 120/76 98 12/31/20 23:25 36.9 C 68 16 116/71 98 Laboratory Results Laboratory Results WBC 5.37 K/uL (4.8-10.8) 01/01/21 05:57 RBC 2.61 M/uL (4.2-5.4) L 01/01/21 05:57 Hgb 8.5 g/dL (12.0-16.0) L 01/01/21 05:57 Hct 25.9 % (37-47) L 01/01/21 05:57 MCV 99.2 fL (80-100) 01/01/21 05:57 MCH 32.6 pg (25-34) 01/01/21 05:57 MCHC 32.8 g/dL (32-36) 01/01/21 05:57 RDW Std Deviation 47.8 fL (36.4-46.3) H 01/01/21 05:57 RDW Coeff of Brittnee 13.2 % (11.5-14.5) 01/01/21 05:57 Plt Count 214 K/uL (130-400) 01/01/21 05:57 MPV 10.4 fL (7.4-10.4) 01/01/21 05:57 Immature Gran % (Auto) 0.0 % 01/01/21 05:57 Neut % (Auto) 54.0 % 01/01/21 05:57 Lymph % (Auto) 30.7 % 01/01/21 05:57 [place] % (Auto) 11.5 % 01/01/21 05:57 Eos % (Auto) 3.4 % 01/01/21 05:57 Baso % (Auto) 0.4 % 01/01/21 05:57 Neut # (Auto) 2.90 K/uL (1.4-6.5) 01/01/21 05:57 Lymph # (Auto) 1.65 K/uL (1.2-3.4) 01/01/21 05:57 [place] # (Auto) 0.62 K/uL (0.11-0.59) H 01/01/21 05:57 Eos # (Auto) 0.18 K/uL (0-0.5) 01/01/21 05:57 Baso # (Auto) 0.02 K/uL (0-0.2) 01/01/21 05:57 Immature Gran # (Auto) 0.00 K/uL (0.00-0.02) 01/01/21 05:57 Sodium 144 mmol/L (136-145) 01/01/21 05:57 Potassium 4.6 mmol/L (3.5-5.1) 01/01/21 05:57 Chloride 113 mmol/L (98-107) H 01/01/21 05:57 Carbon Dioxide 28 mmol/L (21-32) 01/01/21 05:57 Anion Gap 3.0 (3-11) 01/01/21 05:57 BUN 21 mg/dl (7-18) H 01/01/21 05:57 Creatinine 0.85 mg/dl (0.6-1.2) 01/01/21 05:57 Est Cr Clr Drug Dosing 89.6 ml/min 01/01/21 05:57 Est GFR ( Amer) 83.3 01/01/21 05:57 Est GFR (Non-Af Amer) 71.9 01/01/21 05:57 BUN/Creatinine Ratio 24.1 (10-20) H 01/01/21 05:57 Glucose 92 mg/dl (70-99) 01/01/21 05:57 Calcium 8.4 mg/dl (8.5-10.1) L 01/01/21 05:57 Hepatitis C Ab Screen Neg (Neg) 12/30/20 05:45
--- NOTE | 2021-01-01 22:52 | Discharge Summary ---
Date of Service January 01, 2021 Admission HPI Per Admitting Provider The patient is a 65 year old female who presents with complaints of severe right hip pain and DJD. The patient has failed outpatient conservative treatments to this point which included NSAIDs, IA corticosteroid injection, home exercise/walking program. The patient's pain and limited function have progressed to the point where they severely hinder their activities of daily living and they no longer tolerate exercise programs. They are requesting to proceed with total hip replacement surgery. Principal Diagnosis Right total hip replacement -Right hip DJD Discharge Exam RLE NVSI +EHL/FHL/TA/GS SILT grossly, +2 DP pulse, compartments soft NT, dressing cdi. Constitutional WD/WN, vitals as above Discharge Data Allergies Allergy/AdvReac Type Severity Reaction Status Date / Time amoxicillin Allergy Mild leg pain Verified 12/29/20 07:09 Penicillins Allergy Mild leg pain Verified 12/29/20 07:09 codeine Allergy Unknown Chest Pain Verified 12/29/20 07:09 Consultations 12/30/20 08:00 Consult Case Management - Discharge Planning Routine Procedures Performed Operation Date: 12/29/20 09:35 Actual Procedures p Right Total Hip Arthroplasty(Right) - Abilio Ames DO [facility] Course (1) Degenerative joint disease of right hip: The patient is a 65 -year-old female who presents with long standing history of severe right hip DJD and failed outpatient conservative treatments. The patient's symptoms have progressed to the point where it has been difficult to perform even normal activities of daily living. I indicated the patient for a right total hip arthroplasty, the risks, benefits and complications of the procedure include but not limited to infection, bleeding, damage to bone, nerves, vessels, surrounding soft tissue, may develop blood clots, loss of function, leg length discrepancy, dislocation, failure of the components, loosening of the components, the need for additional surgery and . The patient wished to proceed with surgery at this time and informed consent was obtained. Hospital Course: On 12/29/20 the patient was taken to the operating room, adequate anesthesia administered and underwent a right total hip arthroplasty. The patient tolerated the procedure well and was taken to the PACU in stable condition. Post-operatively the patient was started on a DVT ppx medication and given appropriate IV antibiotics. Consults were placed to physical therapy, occupational therapy and case management. On POD#1, the patient did well overnight and their pain was well controlled. Labs were drawn and the Hgb was 9.3. The patient was slow to progress with PT. Dressings were clean, dry and intact. On POD#2, the patient's pain was well controlled, progressed with PT, labs drawn, hgb 8.5. Had brief episode of feeling light headed, no LOC, VSS. Continued to monitor, no further complaints. On POD#3, the patient continued to progress with PT, feeling well, no acute issues overnight. Labs drawn, hgb 8.5. VSS. The patients hospital stay was relatively uneventful and they were deemed stable by the orthopedic team and consultants to be discharged home with on 01/01/21. Discharge Instructions: Upon discharge the patient may weight bear as tolerates through their operative extremity. They were instructed to keep the incision clean and dry at all times. The patient may shower but should not submerge the incision, avoid bathing, pools and hot tubs. The patient was given a script for pain medication and should take as instructed. The patient was given a script for DVT ppx 81mg ASA BID and should take as directed. The patient was instructed to not drive or travel for long distances until cleared to do so. If the patient develops any symptoms of fevers, chills, nausea, vomiting, increased redness, swelling, pain or drainage from the surgical site, they should notify the office and/or proceed to the nearest emergency room. The patient should follow up in 10-14 days after surgery for their routine post-operative follow-up appointment and should call the office, to confirm the date and time. POD 3 Status post right total hip arthroplasty Repeat hemoglobin last night was 9.6. Back to 8.5 this morning. Vital signs stable, afebrile. Patient feeling little better today. Discussed going home of which she feels she is capable. Continue PT/OT DVT prophylaxis with aspirin p.o. twice daily, SCDs, MITCH hose Pain management as written. DC planning-patient planning for home health services upon discharge. POD#2 -Ancef x24 -DVT prophylaxis: SCDs, teds, 81 mg ASA twice daily -Weight-bear as tolerates right lower extremity -Posterior hip precautions -PT/OT -Postoperative x-ray demonstrates a well aligned well fixed prosthesis without fracture or dislocation. -A.m. labs - as above, hgb 8.5 -DC planning - home with HH POD#1 -Ancef x24 -DVT prophylaxis: SCDs, teds, 81 mg ASA twice daily -Weight-bear as tolerates right lower extremity -Posterior hip precautions -PT/OT -Postoperative x-ray demonstrates a well aligned well fixed prosthesis without fracture or dislocation. -A.m. labs - as above, hgb 9.3 -DC planning - home with HH Total Time Total Time Spent Total Time Spent (In Minutes): 60 Discharge Plan Discharge Items Patient Disposition: Home - Home Health Services Reason For Visit: Unilateral Primary Osteoarthritis, Right Hip Discharge Diagnosis: Right total hip replacement Condition on Discharge: Good Activity: Per Instructions section Lifting: Wait until after follow-up appointment Bathing: Keep incision dry Bathing Comment: No bathing, pools or hot tubs. Sexual Activity: Wait until after follow-up appointment Exercise/Sports: Wait until after follow-up appointment Driving/Machine Use: No driving Weightbearing: Full weightbearing Non-emergency contact: Primary Care Provider and Surgeon Call non-emergency contact if: you have any medication questions, your symptoms worsen, your pain is not controlled, your pain is worsening, your pain is unusual for you, your pain is concerning for you, you have a fever, your temperature is above 101, your wound has increased redness, your wound has i ncreased drainage and your wound pain has increased Follow-up/Referrals: James Rodriguez MD [Primary Care Provider] - Diet: Regular Addtl Attending Provider Instructions: ACTIVITY RECOMMENDATIONS: SELF CARE INSTRUCTIONS AFTER TOTAL HIP REPLACEMENT Until the incision and soft tissues around your hip have healed, there is a possibility that the hip prosthesis could dislocate. A. Observe the following precautions to prevent dislocation: 1. Don't bend your hip greater than 90 degrees. 2. Avoid crossing your legs or ankles while standing or lying. 3. Sit with your feet placed 6 inches apart. 4. When sitting, keep your knees below your hips. Sit on a firm surface, avoid deep, soft chairs and couches. Use an elevated toilet seat in the bathroom. 5. Don't bend over at the waist. Use a long handled shoehorn and a sock aid to help you put on your shoes and socks. A diesel locomotive firer can help you milk pickup driver objects that are too high or too low to reach. 6. Keep car riding to a minimum for at least one month after surgery. B. Your balance may be shaky for a while. Use crutches or a walker until directed by your doctor. C. Use hand rails when walking on stairs. D. Wear low heeled shoes with non-slip soles. E. Be sure that your floors are free of things that could trip you - throw rugs, electrical cords, small objects. Avoid wet and waxed floors, especially with crutches and canes. F. Try to walk several times a day with rest periods between. G. Continue with all the exercises taught to you in the hospital. Again, make walking a part of your daily routine. SPECIAL CARE INSTRUCTIONS: VERY IMPORTANT TO READ AND REVIEW A. You may still be at risk for phlebitis and blood clots. 1. Wear surgical stockings (MITCH hose) for 2 weeks after surgery to improve circulation and reduce swelling. 2. Take Aspirin 81mg twice daily for 4 weeks or as directed by your doctor. This is your blood thinner. 3. High risk patients may be prescribed a stronger blood thinner if necessary. 4. If you are on Coumadin normally, your family doctor/supervisor sunglasses should monitor your blood work. Expect a phone call the day of or the day after bloodwork is drawn to adjust your dosage. B. You must take antibiotics before having dental work, bladder, bowel and other surgery. Your doctor will provide you with a permanent card to carry describing precautions. C. Call [facility] if you have a fever, redness or swelling around the incision, cloudy drainage from incision, or sudden increase in pain in your hip, not relieved by your regular pain medication. D. Please call the office at if you have any concerns or questions about your operation or recovery. * YOU MAY SHOWER, NO TUB BATHS UNTIL CLEARED BY YOUR DOCTOR. * WEAR MITCH HOSE 20 HOURS PER DAY FOR 2 WEEKS. * YOU SHOULD USE A WALKER OR CRUTCHES FOR 2-4 WEEKS. THIS WILL HELP PREVENT STRAIN ON YOUR HIP MUSCLE AND ALLOW IT TO HEAL PROPERLY. YOU MAY WEAN TO A CANE TOLERATED. * MOST PATIENTS WILL HAVE HOME NURSING FOR THERAPY. IF YOU DECIDE TO DO OUTPATIENT PHYSICAL THERAPY, PLEASE SCHEDULE THIS 3 TIMES PER WEEK. *CARLOS incisional vac is a special dressing covering your incision. This dressing provides a sterile dry environment while you are healing. The dressing is to be left in place for 7 days post-operatively. Your home nurse or surgeon will remove. If you develop any redness or blisters or have any questions notify your surgeon immediately. FOLLOW UP VISIT: If appointment is not already scheduled: Please call [facility] to make a follow-up appointment for 2 weeks after your surgery at . Pending Studies at Discharge: No Stand-Alone Forms: My [facility] Loc[facility], Smoking Cessation Medications and DC Order Prescriptions: New acetaminophen 500 mg Tablet 1,000 mg PO Q8 PRN (Reason: fever or pain) Qty: 90 RF: 0 aspirin 81 mg Tablet,Delayed Release (Dr/Ec) 81 mg PO BID Qty: 56 RF: 0 celecoxib [Celebrex] 200 mg Capsule 200 mg PO BID PRN (Reason: pain/inflammation) Qty: 28 RF: 0 oxycodone 5 mg Tablet 5 mg PO Q6H MDD 4 PRN (Reason: pain) Qty: 30 RF: 0 sennosides [Senokot] 8.6 mg Tablet 17.2 mg PO HS PRN (Reason: constipation) Qty: 28 RF: 0 Continued metoprolol succinate 25 mg tablet extended release 24 hr 25 mg PO DAILY Qty: 90 RF: 3 lisinopril 30 mg tablet 30 mg PO QAM Qty: 90 RF: 3 niacin (inositol niacinate) 400 mg niacin (500 mg) capsule 1 cap PO QAM RF: 0 lutein 20 mg capsule 20 mg PO QAM RF: 0 atorvastatin 40 mg tablet 40 mg PO HS Qty: 90 RF: 3 coenzyme Q10 [CoQ-10] 100 mg capsule 200 mg PO QAM RF: 0 cholecalciferol (vitamin D3) 3,000 unit tablet 3,000 units PO QPM RF: 0 magnesium 250 mg tablet 250 mg PO QAM RF: 0 turmeric root extract 500 mg capsule 1,000 mg PO QAM RF: 0 Tart Jones Extract 1,000 mg capsule 3,000 mg PO QPM RF: 0 omega 3,6,9 combination no.7 92 mg (43 mg-22 [id number]) Tablet,Chewable 0 mg PO QPM RF: 0 hawthorn perera 500 mg Capsule 1,000 mg PO QAM RF: 0 phytosterol combination no.1 500 mg Capsule 1,000 mg PO BID RF: 0 red yeast rice 600 mg Tablet 1,200 mg PO QPM RF: 0 multivitamin Tablet 1 tab PO QAM RF: 0 Discontinued meloxicam 15 mg tablet 15 mg PO QAM RF: 0 aspirin 81 mg tablet,delayed release (DR/EC) 81 mg PO QPM RF: 0 acetaminophen [Tylenol Extra Strength] 500 mg Tablet 1,000 mg PO Q6H PRN (Reason: Pain) RF: 0 Discharge Orders: Discharge Order (Routine); Ordered 01/01/21 Ordered By: Colten Moy/Other Patient Handouts: Hip Precautions Admission Data Admit Date/Time: 12/29/20 12:56 Attending Provider: Abilio Ames Admit Provider: Abilio Ames Primary Care Provider: James Rodriguez Other Providers: [facility],Home Health Other Interventions: Discharge Summary Assessment (RN) Last Done: 01/01/21 11:16
== END 2021-01-01 12:57 | disposition home health service (06) ==
LOC: 3E 06:10 → ASU 06:10